=== PATIENT | male | born 1955 | race Caucasian/White ===

== ENCOUNTER → 2017-06-22 | Outpatient (CLI) | payer OTHER ==
[~2017-06-22] VITALS: Ht 172.7 cm; Wt 122.0 kg
[~2017-06-22] MED LIST: AMARYL4 MG PO; AMLODIPINE BESY10 MG PO; AMOX TR-K CLV1 EAC4 PO; BISOPROLOL-HCT1 EACH PO; HUMALOG100 UNIT/1 SUBQ; LEVEMIR FL100 UNIT/2 SUBQ; LYRICA300 MG PO; MS CONTIN 30 MG30 M1 PO; PRIMIDONE50 MG PO; SYNTHROID50 MCG PO; TRAMADOL 50 MG50 MG PO; VENTOLIN HFA 1818 GM INH
--- NOTE | ~2017-06-22 | HPC ---
[facility] [place] [address] PAIN MANAGEMENT CONSULTATION Name: LIYA PRATT LYDIA Room #: REG [place]#: [id number] Admission: 06/22/17 Attend Phys: Cynthia Gonzalez MD Discharge: Date of : 57 Report #: [id number] THIS REPORT FOR: //name// CC: BRENT Prather M.D. [facility] physician/PCP Cynthia Gonzalez DATE OF SERVICE: 06/22/2017 CHIEF COMPLAINT: "Chronic right foot pain with some crush bones in my foot." HISTORY OF PRESENT ILLNESS: The patient is a 62-year-old gentleman. 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 He states that he used to work for [employer]. A number of years ago, this company was bought out by [employer]. Since that time, he has moved to a number of different hubs. He was stationed in [place]. Noted to have some pain and discomfort in his right foot. The patient after evaluation was determined to have diabetes. He was seen by a education faculty member. He was told that he has a significant problem with his foot. He has been seen by orthopaedic physician. He has been told that he may need to have his right foot amputated. There was quite a bit of pathology in the right foot. The patient was told that he had Charcot foot with pain. He suffers from diabetes. He states that he has seen a prosthesis/orthotics person. He is having a special boot built for his foot. He continues to ambulate on the foot. He notes that the pain is quite excruciating. He has been treated with morphine 30 mg b.i.d. The patient states that that has been helpful with the foot pain. Unfortunately, his physician who supplied his medications has closed his office. He has been referred to another pain clinic for treatment. The patient has come to the pain clinic at [facility]. He worked here quite a number of years ago in the [employer]. 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 The patient states that he has never had a problem with his medications. He has never gone to multiple doctors for the medication. He did have to go to the Emergency Room because he ran out of medications. Other than that, he continues to try and get his medication from one source. He states that his blood A1c levels have been greater than 9. He does have some decreased sensation to his feet with some numbness and tingling in the toes of his right foot. He states his blood sugars have been high. They have been largely in the 300s. He has had an A1c of 12 during the hospitalization. ALLERGIES: No known drug allergies. MEDICATIONS: Albuterol sulfate 2 puffs p.r.n., Lyrica 300 mg b.i.d., insulin detemir 100 units per meal, 35 units q. 12 hours, tramadol 50 mg q. 4 hours p.r.n., Amaryl 4 mg b.i.d., bisoprolol/hydrochlorothiazide 10/6.25 daily, [address] [address] PAIN MANAGEMENT CONSULTATION Name: LIYA PRATT LYDIA Room #: REG CL Can#: [id number] Admission: 06/22/17 Attend Phys: Cynthia Gonzalez MD Discharge: Date of : 56 Report #: [id number] primidone 50 mg at bedtime, Humulin insulin 15 units subq t.i.d. with meals, amlodipine 10 mg daily, Morphine Contin 30 mg b.i.d. PAST MEDICAL HISTORY: Asthma, sleep apnea, hypertension, diabetes, Charcot's foot, osteomyelitis of right foot, and benign familial tremors. 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 He is on leave at this juncture. PAIN CLINIC ASSESSMENT: 1. History of osteoarthritis left lower extremity, left upper extremity, right lower extremity, and right upper extremity, not treated for rheumatoid arthritis. 2. Height 5 feet 8 inches, weight 269 pounds, BMI is 40. 3. Vital signs: Blood pressure 175/92, pulse 77, respiratory rate 18, room air saturation 97%. Pain intensity 1 with use of his medications. 4. Fall risk: The patient fell within the last 3 months. He states that he was walking through the house and the boot on his right foot got caught on the door seal, which caused him to fall. Otherwise, he is not having problems with ambulation. 5. Blood thinner: The patient is not on any blood thinners. 6. Hypertension: The patient is being treated for hypertension. 7. Opioid therapy greater than 6 months: The patient has been treated by his previous doctor with opioid medications. 8. Opioid risk assessment tool is low. 9. Functional assessment tool 41/70 in regards to general activity, mood, walking ability, work, relationships with others, sleep, enjoyment of life. 10. Recreational drug use, never. 11. Tobacco, never smoked cigarettes. 12. Alcohol, the patient denies use of alcohol. PHYSICAL EXAMINATION: GENERAL: The patient is a well-developed white male. Appearance, appears his stated age. Orientation: The patient is alert and oriented x 3. Affect: The patient's affect appears appropriate. HEENT: Normocephalic, atraumatic. Extraocular eye muscles intact. Appears that the patient may have some caries. Hearing within normal limits. Buccal membranes moist. NECK: Clear to auscultation without masses. LUNGS: Clear to auscultation. HEART: Regular rate, difficult to assess heart tones. MUSCULOSKELETAL: Muscle strength in the upper extremities is judged to be 5/5 with the major muscles groups. Deep tendon reflexes are trace for the biceps bilaterally and unappreciated for the triceps and brachioradialis. Muscle strength is judged to be 5/5 for cover remover strength. Left and right lateral bending [facility] [address] [place] [address] PAIN MANAGEMENT CONSULTATION Name: LIYA PRATT LYDIA [facility]: [facility] [id number] Admission: 06/22/17 Attend Phys: Cynthia Gonzalez MD Discharge: Date of : 57 Report #: [id number] of neck, left and right lateral rotation, left and right lateral extension and flexion were unremarkable. Musculoskeletal alignment appears within normal limits. The patient has an antalgic walk, walks with a limp and has a walking boot on the affected foot. Deep tendon reflexes are trace at the patella, left and right. Muscle bulk appears normal and symmetrical bilaterally. The patient has the perception of a stocking and glove presentation with decreased sensation to the level of his knee on the left and right, secondary to diabetes. Vibratory sense is absent in the aguilar bilaterally and present in his upper extremities. IMPRESSION: 1. Chronic pain in the right foot secondary to diabetic changes with Charcot foot problems, presenting with chronic pain. 2. Diabetes, poorly controlled, A1c 12, has had blood sugars in the 300 range. 3. Benign familial tremor. 4. Sleep apnea. The patient states he uses a CPAP machine. RECOMMENDATIONS: We discussed treatment options with the patient. At this juncture, he will get his information from his previous pain physician. We will evaluate it. If the patient has not had any encumbrances, we will consider providing his opioid medications. We have discussed the use of opioid medications. He is aware of the concerns regarding opioid medications in the media. He states that he takes medications only as prescribed. Pain medications enable him to be up and ambulatory. He has been given the option of surgery. At this juncture, he would like to preserve his right foot as long as possible. He has had a special boot that is being made for his foot. He hopes that in the future, the bones would mend and that he would be able to forestall amputation of his right leg. He is unable to work at this juncture secondary to his condition. He is going to try to make arrangements for his insurance possibly receiving Medicare. He will continue to monitor his blood sugars. The patient has been educated that elevated blood sugars like this are quite problematic and can worsen his right foot pathology. He will continue to take his hypertension medication. We have tested him for narcotics using the oral method. He states that he has only taken his medications and there were no other medications to be found in his system. He is going to go to the hospital and get his old records. The patient states that he is about out of medication. He was given a 1-month supply. Now, he has only a few days' worth of medication. We will write a prescription for MS Contin 30 mg 1 p.o. b.i.d., a total of 30 pills to hold him over until we get his other information. The patient states that if he does not have this medication, he will have to go to the Emergency Room. In an effort to keep him from going to the Emergency Room, we will give him the MS Contin medication. He will then sign a contract with the pain clinic indicating that he will only get his medications from [address] [address] PAIN MANAGEMENT CONSULTATION Name: LIYA PRATTN Room #: REG [facility] Milady.#: [id number] Admission: 06/22/17 Attend Phys: Cynthia Gonzalez MD Discharge: Date of : 56 Report #: [id number] We would like to thank you for letting us participate in his care. We hope he continues to improve. <ELECTRONICALLY SIGNED> By: Cynthia Gonzalez MD 07/04/17 1434 1423 0316 Cynthia Gonzalez MD /PMT
[2017-06-22 09:25] VITALS: BP 175/92
== END ==
LOC: PAIN 07:06
DX: E11.9 Type 2 diabetes mellitus without complications (principal); G25.0 Essential tremor; G47.30 Sleep apnea, unspecified; Z79.899 Other long term (current) drug therapy

== ENCOUNTER → 2017-07-04 | Outpatient (CLI) | payer OTHER ==
[~2017-07-04] VITALS: Ht 167.6 cm; Wt 122.0 kg
[~2017-07-04] MED LIST changes: +MS CONTIN15 MG PO; +MS CONTIN30 MG PO; +NEURONTIN 300300 M1 PO; +PERCOCET 10-321 EAC1 PO; +PERCOCET 10-321 EACH PO; +TOPROL XL100 MG PO
--- NOTE | ~2017-07-04 | HPC ---
[facility] [address] [address] [address] PAIN MANAGEMENT CONSULTATION Name: LIYA PRATT LYDIA Room #: REG [facility]#: [id number] Admission: 07/04/17 Attend Phys: Cynthia Gonzalez MD Discharge: Date of : 56 Report #: [id number] THIS REPORT FOR: //name// CC: Dwayne Prather [facility] physician/PCP Cynthia Gonzalez DATE OF SERVICE: 07/04/2017 FOLLOWUP COMPLAINT: Here for renewal of medication. FOLLOWUP HISTORY: The patient is a 62-year-old gentleman. 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 He does have pain involving his right foot. He has been on opioid medications. He was taking 30 mg b.i.d. At this juncture, he is taking 30 mg b.i.d. of MS Contin. He finds that this is helpful. He has significant pain and discomfort in his right foot. He is in the process of trying to get a boot to accommodate his right foot. As you recall, he suffers from diabetes and Charcot foot pain. He has been measured for a boot. He goes within the next couple of days to note the fit of the boot. He hopes the right foot improves. He has been told that he may well need to have an amputation in the future. States that on the past 2 weeks since we saw him last that his medications have been ample. He is aware that these medications will only be helpful in temporizing and making his pain tolerable. He denies any history of problems with opioid medications in the past. Denies any problems with mentation with their use. Does not have any significant problems with constipation. The patient has seen in the news that opioid medications have been associated with addiction as well as tolerance. Overall, he feels that these medications are helpful. He is interested in getting his social security benefits. He will turn 63 in the later portion of this year. Hopefully, he will be able to get not only his benefits, but medical benefits as well. ALLERGIES: No known drug allergies. MEDICATIONS: Include albuterol 2 puffs p.r.n., Lyrica 300 mg p.o. b.i.d., insulin detemir 100 units per meal, 35 units q. 12 hours, tramadol 50 mg q. 4 hours p.r.n., Amaryl 4 mg b.i.d., bisoprolol/hydrochlorothiazide 10/6.25 mg daily, primidone 50 mg at bedtime, Humulin insulin 15 mg subq t.i.d. with meals, amlodipine 10 mg daily, morphine 30 mg b.i.d. PAIN CLINIC ASSESSMENT: 1. The patient has a history of osteoarthritis involving his lower extremities. Has some left lower extremity as well as some right lower extremity problems. Has a Charcot right foot with chronic pain. 2. Height 5 feet 6 inches, weight 269 pounds, BMI [place] 43. [place] [address] PAIN MANAGEMENT CONSULTATION Name: LIYA PRATT Room #: REG [facility] [place]#: [id number] Admission: 07/04/17 Attend Phys: Cynthia Gonzalez MD Discharge: Date of : 57 Report #: [id number] 3. Vital signs: Blood pressure 151/80, pulse 74, respiratory rate 18, room air saturation 95%. 4. Pain intensity 05/02. 5. Fall. The patient has not fallen in the last 3 months, but does ambulate with use of a crutch. 6. The patient is not on a blood thinner 7. History of hypertension. The patient is being treated for hypertension. 8. Opioid therapy greater than 6 weeks. The patient has been given a contract where he will only get his opioid medication from one source. 9. Risk assessment tool, low for opioids. 10. Functional assessment tool /. 12. Recreational drug use. The patient denies use of recreational drugs. 13. Tobacco: The patient has never used tobacco. 14. Alcohol. The patient denies use of alcoholic beverages. PHYSICAL EXAMINATION: GENERAL: The patient is a well-developed white male, somewhat obese. Appears his stated age. Orientation: The patient is alert and oriented x 3. Affect: The patient's affect appears appropriate. HEENT: Normocephalic, atraumatic. Extraocular eye muscles intact. It appears that the patient has a number of caries. Hearing is within normal limits. Buccal membranes are moist. NECK: Clear to auscultation without masses. LUNGS: Clear to auscultation. HEART: Regular rate and somewhat difficult to hear the tones. MUSCULOSKELETAL: Muscles in the upper extremity judged to be 5/5 with no major muscle problems or changes in sensation. Musculoskeletal alignment appears within normal limits. The patient has an antalgic walk. He walks using a crutch Has a boot on the right affected foot. Notes that this painful when he steps on it because of "movement of the bones in the foot." He has history of stocking/glove presentation of neurological changes in the lower extremity. This is secondary to diabetes. Has absence of vibratory sense in the lower extremity. IMPRESSION: 1. Chronic pain in the right foot secondary to diabetic changes with Charcot foot problems. 2. Chronic pain in the right foot. 3. Diabetic neuropathy. Has had some poor control of his diabetes -- patient to see an strategic debriefing specialist in the near future. 4. Benign familiar tremors. 5. Sleep apnea. The patient states he continues to use a CPAP machine. RECOMMENDATIONS: We discussed treatment options with the patient. At this juncture, his information that we have received did not show any problems with [facility] [address] [place] [address] PAIN MANAGEMENT CONSULTATION Name: LIYA PRATT LYDIA Room #: REG [facility]#: [id number] Admission: 07/04/17 Attend Phys: Cynthia Gonzalez MD Discharge: Date of : 57 Report #: [id number] his opioid use in the past. We will provide him with reasonable amount of opioid medications to help him during this painful. He is scheduled to have the right orthotic/boot fitted in the next few days. He also states that he is going to follow up with his primary physician in regards to his diabetes. He is to see an strategic debriefing specialist in the future. The patient also will follow up with an orthopaedic surgeon in the future should he need to have his foot amputated. A script for his medications of 30 mg MS Contin b.i.d. have been written. He will follow up monthly in this regard. He will call us if he has any problems with his medications. We would like to thank you for letting us participate in his care. We hope he continues to improve. <ELECTRONICALLY SIGNED> By: Cynthia Gonzalez MD 07/20/17 0819 1632 0034 Cynthia Gonzalez MD /MONALISA
[2017-07-04 12:50] VITALS: BP 151/80
== END ==
LOC: PAIN 06:21
DX: G89.29 Other chronic pain (principal); M79.671 Pain in right foot; E11.40 Type 2 diabetes mellitus with diabetic neuropathy, unspecified; G47.30 Sleep apnea, unspecified; G25.0 Essential tremor

== ENCOUNTER → 2017-08-10 | Outpatient (CLI) | payer OTHER ==
[~2017-08-10] VITALS: Ht 167.6 cm; Wt 125.6 kg
[~2017-08-10] MED LIST changes: -MS CONTIN30 MG PO; -NEURONTIN 300300 M1 PO; -PERCOCET 10-321 EAC1 PO; -PERCOCET 10-321 EACH PO; -TOPROL XL100 MG PO
--- NOTE | ~2017-08-10 | HPC ---
[facility] [place] [address] PAIN MANAGEMENT CONSULTATION Name: LIYA PRATT LYDIA Room #: REG CUCO Can#: [id number] Admission: 08/10/17 Attend Phys: Cynthia Gonzalez MD Discharge: Date of : 56 Report #: [id number] THIS REPORT FOR: //name// CC: BRENT MARTIN [facility] physician/PCP Cynthia Gonzalez DATE OF SERVICE: 08/10/2017 FOLLOWUP COMPLAINT: Here for medication renewal. FOLLOWUP HISTORY: The patient is a 62-year-old gentleman. 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 He has had problems with his foot. Because of his foot, he has been unable to work. He has Charcot foot pain. He is trying to let it heal. He has got a new boot. He is trying to wear this. He has noticed some significant swelling in his foot because of the diabetes and the Charcot foot. He has returned to the pain clinic for renewal of his pain medications. He finds that the morphine medication is beneficial. It allows him to tolerate the pain and discomfort. He states that he would not be able to bear this without the use of this medication. He has taken the medication as prescribed. Denies any problems with constipation. He keeps his medications in guarded area. He would like to have his medications renewed at this juncture. ALLERGIES: No known drug allergies. MEDICATIONS: Albuterol 2 puffs p.r.n., Lyrica 300 mg p.o. b.i.d., insulin Detemir 100 units per meal 35 units subq every 12 hours, tramadol 50 mg q.4h. p.r.n., Amaryl 4 mg b.i.d., bisoprolol/hydrochlorothiazide 10/6.25 mg daily, primidone 50 mg at bedtime, Humulin insulin 16 units subq t.i.d. with meals, amlodipine 10 mg daily, morphine 30 mg b.i.d. PAIN CLINIC ASSESSMENT: 1. The patient has a history of osteoarthritis involving his lower extremities. He has some lower extremity pain as well, has a Charcot right foot with chronic pain. 2. Height 5 feet 6 inches, weight 277 pounds, BMI is 44. 3. Vital signs: Blood pressure is 179/89, pulse 73, respiratory rate 22, room saturation 98%. Pain intensity 05/02. 4. Fall risk. The patient has not fallen in the last 3 months. He does need some assistance with walking and uses a crutch. 5. Blood thinner. The patient is not on a blood thinning. 6. History of hypertension. The patient is being treated for hypertension. 7. Opioid therapy greater than 6 weeks. The patient is on opioid therapy and has signed a contract with the pain clinic. 8. Risk assessment tool, low. 9. Functional assessment tool 41/70 indicating moderate problems with [address] [address] PAIN MANAGEMENT CONSULTATION Name: LIYA PRATT Room #: REG [facility]#: [id number] Admission: 08/10/17 Attend Phys: Cynthia Gonzalez MD Discharge: Date of : 57 Report #: [id number] activities of daily living secondary to his pain. 10. Recreational drug use. Denies use of recreational drugs. 11. Tobacco never smoked cigarettes. 12. Alcohol: The patient denies use of alcoholic beverages. PHYSICAL EXAMINATION: GENERAL: The patient is a well developed white male, somewhat obese. Appears to be his stated age. He is alert and oriented x 3. Affect is appropriate. Somewhat saddened secondary to chronic pain involving his right foot. HEENT: Normocephalic, atraumatic. Extraocular eye muscles intact. Sclerae nonicteric, hearing within normal limits, numerous caries. Buccal membrane is moist. Neck: Clear to auscultation without masses. LUNGS: Clear to auscultation without rhonchi or wheezing. HEART: Regular rate, somewhat difficult to ascertain/hear heart tones. MUSCULOSKELETAL: Upper extremity is judged to be 5/5 for the major muscle groups without sensation or changes. Muscular alignment appears to be within normal limits. NEUROLOGIC: The patient walks with an antalgic gait. Has a cane, uses a boot on the affected right foot. Notes pain and discomfort secondary to movement of the bones in his foot with ambulation. Has history of stocking glove presentation on neurological change in the lower extremities secondary to diabetes. Absence of vibratory sensation in the lower extremities. IMPRESSION: 1. Chronic right foot pain secondary to diabetic changes in Charcot foot problems: 2. Chronic pain on the right foot. 3. Diabetic neuropathy, has had poor control in the past. 4. The patient to see an instrumentation tech in the future. 5. Benign familiar tremors. 6. Sleep apnea. The patient continues to use a CPAP machine. RECOMMENDATIONS: We discussed treatment options with the patient. At this point, we will continue with his opioid medications. He finds the medications are helpful. He is hoping that he will be able to avoid amputation of his right foot. He is having the right boot restructured. Hopefully, he will find that it is less painful. He will continue to monitor his blood sugars. A script for MS Contin 1 p.o. b.i.d. has been written. We would like to thank you for letting us participate in his care. We hope he continues to improve. <ELECTRONICALLY SIGNED> By: Cynthia Gonzalez MD 08/22/17 0825 1716 0440 Cynthia Gonzalez MD /nt
[2017-08-10 09:27] VITALS: BP 179/89
== END ==
LOC: PAIN 08-01 09:32
DX: G89.29 Other chronic pain (principal); M79.671 Pain in right foot; G47.30 Sleep apnea, unspecified; E11.40 Type 2 diabetes mellitus with diabetic neuropathy, unspecified

== ENCOUNTER 2017-09-27 11:09 | Inpatient (IN) | payer OTHER ==
[~2017-09-27] VITALS: Ht 172.7 cm; Wt 116.6 kg
--- NOTE | ~2017-09-27 | HC ---
[facility] [place] [address] CONSULTATION Name: LIYA PRATT LYDIA Room #: 453-P [facility] IN ..#: [id number] Admission: 09/27/17 Attend Phys: Nigel Pacheco MD Discharge: 09/29/17 Date of : 57 Report #: [id number] THIS REPORT FOR: //name// CC: FAM unknown Nigel Pacheco DATE OF SERVICE: 09/28/2017 CHIEF COMPLAINT: Charcot foot infection. HISTORY OF PRESENT ILLNESS: This is a 62-year-old male patient who has had ongoing problems with his foot over the last 7-8 months. 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 He felt that his foot has collapsed. He has had been seen by multiple physicians and feels that things are not improving despite being in a Charcot boot. He is admitted due to evidence of infection and was seen by Dr. Phani Fisher as an outpatient who recommended hospitalization. The patient denies pain associated with this. He is, however, very discouraged that things have not improved and feels that he is likely going to require an amputation. PAST MEDICAL HISTORY: Positive for diabetes mellitus with peripheral neuropathy. Likely development of Charcot deformity in the last year, he has had previous cholecystectomy, appendectomy, history of diabetes, hypertension and mild asthma. MEDICATIONS: Vancomycin, Zosyn, insulin, primidone, hydrochlorothiazide and Synthroid. ALLERGIES: None. FAMILY HISTORY: Noncontributory. SOCIAL HISTORY: Nonsmoker. Denies alcohol use. 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 REVIEW OF SYSTEMS: CONSTITUTIONAL: The patient denies fever, chills or weight loss. NEUROLOGICAL: The patient denies focal weakness, but does note neuropathic symptoms of his feet. ENT: The patient denies earache, nasal drainage or sore throat. CARDIOVASCULAR: The patient denies any chest pain, palpitations, diaphoresis. PULMONARY: The patient denies cough or shortness of breath. GASTROINTESTINAL: The patient denies nausea, vomiting, diarrhea or abdominal pain. ORTHOPEDIC: The patient notes the deformity of his right foot with drainage and ulceration. Other systems in a 14-point review of systems are negative. [address] [address] CONSULTATION Name: LIYA PRATT [facility] Room #: 453-P [facility] IN [facility].#: [id number] Admission: 09/27/17 Attend Phys: Nigel Pacheco MD Discharge: 09/29/17 Date of : 57 Report #: [id number] PHYSICAL EXAMINATION: VITAL SIGNS: At this time include pulse of 64, respiratory rate 18, blood pressure 147/77, and temperature 98.4. GENERAL: This is a chronically ill-appearing male patient who appears to be in minimal distress. HEENT: Head normocephalic. Nose and throat are clear. NECK: Supple. LUNGS: Clear. HEART: S1, S2. ABDOMEN: Soft. Bowel sounds are present. EXTREMITIES: Lower extremities demonstrate easily palpable distal pulses including dorsalis pedis and posterior tibialis bilaterally. He has obvious Charcot changes to his right foot with flattening and prominence of the arch on the plantar surface. He has a very large ulceration on the plantar surface with a mix of granulation and fibrin present. There is some serous drainage noted. NEUROLOGIC: The patient is alert and oriented and appropriate. He lacks protective sensation in the lower extremities. LABORATORY DATA: Includes sodium 131, potassium is 4.6, chloride 98, BUN 20, creatinine 1.3, glucose 251. Albumin is 3.2. White blood cell count 9.1, hemoglobin 11.8. Sed rate is pending. Arterial Dopplers demonstrate normal arterial flow in both lower extremities. X-ray evaluation of the foot demonstrates findings most suggestive of a severe neuropathic foot with fragmentation of most of the tarsal bones and disruption/dislocation at all of the TMT joints. There is fragmentation versus a fracture involving the distal calcaneus, diffuse soft tissue swelling is noted about the foot. CLINICAL IMPRESSION: 1. Nonhealing ulceration of the right foot. 2. Charcot deformity of the right foot with above-noted x-ray findings and bony destruction. 3. Diabetic foot infection. RECOMMENDATION: At this point in time, I have had a lengthy conversation with the patient. Certainly, there are a variety of options going forward. First and foremost, we need to get the infection under control. Secondly offloading will be of enormous importance if the foot is to be salvageable. If so, we would consider total contact casting as a means of reducing the pressure and improving microvascular circulation to the foot. Also, it might be worth considering a Charcot type reconstruction. I am not certain based on his bony anatomy whether this even is a viable option, but I have certainly discussed the possibility with him and perhaps he could discuss this with Orthopedics. Lastly, we discussed the possibility of below-knee amputation as a definitive procedure to allow him to be functional in the shortest time frame. At this point, he will think about and discuss these options. We will recommend a [facility] [address] [place] [address] CONSULTATION Name: BLAIR PRATTUMAIR BIRCHN Room #: 453-P DIS IN M.R.#: [id number] Admission: 09/27/17 Attend Phys: Nigel Pacheco MD Discharge: 09/29/17 Date of : 57 Report #: [id number] quarter strength Dakin's moist gauze dressing and we will recommend continued empiric antibiotic therapy, pending culture results. I appreciate having been asked to see him in consultation. <ELECTRONICALLY SIGNED> By: Tristin Bonilla MD 10/01/17 1259 [id number] 2124 Tristin Bonilla MD /nt
--- NOTE | ~2017-09-27 | HC ---
[facility] [place] [address] CONSULTATION Name: LIYA PRATT LYDIA Room #: 453-P [facility] IN M.R.#: [id number] Admission: 09/27/17 Attend Phys: Nigel Pacheco MD Discharge: 09/29/17 Date of : 57 Report #: [id number] THIS REPORT FOR: //name// CC: FAM unknown Nigel Pacheco REASON FOR CONSULTATION: I was asked to evaluate concerning right diabetic foot infection. HISTORY OF PRESENT ILLNESS: The patient was a 62-year-old with underlying diabetes, peripheral neuropathy, morbid obesity and a history of Charcot foot. He noticed a big change in his foot in January. 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 Was treated with immobilizer boot. Over the last several months, he has been followed at [facility] for orthopedic evaluation. There was some opinion that he was likely to require amputation at some point. Last week, he developed a blister over the plantar aspect of his foot. He went to the Emergency Room at [facility]. He had local debridement, given IV antibiotics and discharged on oral antibiotic therapy. No improvement in the foot and he decided to return to [facility] for further care. Denies any fever, chills or sweats. No increased pain. Blood glucose levels fasting have been in the 150-200 range. He does use insulin adjusted for his blood sugar results. He reports no specific trauma. ALLERGIES: No known allergies. MEDICATIONS: As noted on his MAR, having started on vancomycin and Zosyn from admission. Also takes insulin, primidone, bisoprolol, hydrochlorothiazide, albuterol, and Synthroid. PAST MEDICAL HISTORY: Cholecystectomy, appendectomy, left shoulder surgery, diabetes, hypertension, mild asthma. FAMILY HISTORY: Noncontributory. SOCIAL HISTORY: Nonsmoker, no significant alcohol intake. No street drugs. REVIEW OF SYSTEMS: Denies any headache, cough, sputum, nausea, vomiting, diarrhea, dysuria or frequency. PHYSICAL EXAMINATION: VITAL SIGNS: Afebrile, hemodynamically stable. He was obese, alert, cooperative, no acute distress. HEENT: Revealed poor dentition. Multiple teeth have been extracted. EYES: Unremarkable. NECK: Supple. LUNGS: Clear. [address] [address] CONSULTATION Name: LIYA PRATT LYDIA Room #: 453-P [facility] IN .R.#: [id number] Admission: 09/27/17 Attend Phys: Nigel Pacheco MD Discharge: 09/29/17 Date of : 57 Report #: [id number] HEART: Regular, without murmur. ABDOMEN: Obese. He had a ventral hernia. No hepatosplenomegaly or mass. EXTREMITIES: Pulses were palpable, 2+ edema involving the right foot and leg below the knee. He had desquamation of the skin over the plantar aspect of his mid and hindfoot. Surrounding erythema, which extended up to his lateral and medial foot. No evidence of lymphangitis up the leg. He did have some venous stasis dermatitis changes to his pretibial skin. Decreased sensation in his toes. Changes of Charcot involving the right foot with loss of arch and malpositioning of the foot. LABORATORY STUDIES: Sodium 129, potassium 4.7, creatinine 1.3. Liver function test normal. Hemoglobin 12.7, white count 12.9, platelet count 315,000. Differential unremarkable. Urinalysis unremarkable. Blood and wound cultures are pending. Venous study showed no evidence of thrombus. X-ray of the foot shows severe neuropathic foot changes with fragmentation and most of the tarsal bones and destruction, dislocation of all of the transmetatarsal joints. Fragmentation versus a fracture involving the distal calcaneus along with diffuse soft tissue swelling. Arterial ultrasound shows no significant occlusive disease. IMPRESSION AND PLAN: A 62-year-old diabetic with peripheral neuropathy and Charcot foot on the right with associated soft tissue injury with resulting large plantar foot wound. Unclear the extent of the infection into the deep tissues. He has advanced Charcot changes involving the right foot, which does not appear correctable. 1. Acute renal insufficiency. 2. Hypertension. 3. Coronary artery disease. 4. Hypothyroid. RECOMMENDATIONS: We will continue broad antibiotic coverage pending culture results. I have discussed with Orthopedic Surgery and attending. We will plan MRI scan to assess amount of soft tissue infection to see if there is any other surgical option. Likely will require amputation. We discussed this further with Orthopedic Surgery following imaging studies. No large vessel changes seen on ultrasound. Therefore, suspect small vessel diabetic damage to the right foot. We will follow CBC and renal function. Make adjustments to his antibiotics pending further study. <ELECTRONICALLY SIGNED> By: Mohinder Sy MD 10/02/17 0744 1103 1546 Mohinder Sy MD /nt
--- NOTE | ~2017-09-27 | EKG ---
[address] [place] [address] ELECTROCARDIOGRAM REPORT Name: LIYA PRATT Room #: 453-P ADM IN M.R.#: [id number] Admission: 09/27/17 Attend Phys: Nigel Pacheco MD Discharge: Date of : 57 Report #: [id number] THIS REPORT FOR: //name// [facility] Test Date: 2017-09-27 Test Time: 15:14:16 Pat Name: LIYA PRATT Department: Room: 453 P Gender: M Lvn Lpn: Jean Pierre DOSHI : 1955 Requested By: Nigel Pacheco Order Number: [id number] MD: Jorge Erickson Measurements Intervals [place] Rate: 74 P: 45 IN: 186 QRS: 38 QRSD: 94 T: 41 QT: 412 QTc: 457 Interpretive Statements Sinus rhythm Normal tracing Compared to ECG 11/21/1990 17:49:00 Sinus tachycardia no longer present Electronically Signed On 09-28-2017 9:13:11 CDT by Jorge Erickson [email or web address] <ELECTRONICALLY SIGNED> By: Jorge Erickson MD, [facility] 09/28/17 0913 1514 1514 Jorge Erickson MD, [facility] /EPI
--- NOTE | ~2017-09-27 | HC ---
[facility] [place] [address] CONSULTATION Name: LIYA PRATT LYDIA Room #: 453-P ADM IN M.R.#: [id number] Admission: 09/27/17 Attend Phys: Nigel Pacheco MD Discharge: Date of : 57 Report #: [id number] THIS REPORT FOR: //name// CC: FAM unknown Nigel Pacheco DATE OF SERVICE: 09/28/2017 REASON FOR CONSULTATION: Right Charcot foot. HISTORY OF PRESENT ILLNESS: The patient is a 62-year-old male with diabetes and diabetic neuropathy, who reported initially noting pain and swelling in the right foot in January of last year. He was then seen by a physician in [place], who recommended a boot. The swelling has not significantly improved and he has had multiple other evaluations; most notably was an evaluation at [place], where he reports an orthopedic surgeon recommended an amputation. He reports a wound for about 2-3 weeks, without any new specific injury. He denies fevers or chills and he has been treated by pain management, by Dr. Gonzalez, here at [facility]. He is frustrated with his foot and would like a resolution as quickly as possible, even if that means an amputation. REVIEW OF SYSTEMS: MUSCULOSKELETAL: See HPI. No other wounds. ENDOCRINOLOGY: Reports diabetes mellitus. He reports his last hemoglobin A1c was 9 and has had no significant elevation in his blood sugars recently. NEUROLOGIC: Reports history of diabetic neuropathy with decreased sensation to both of his feet. PAST MEDICAL HISTORY: Significant for hypertension, insulin-dependent diabetes and hypothyroidism. MEDICATIONS: Include insulin, primidone, bisoprolol, hydrochlorothiazide, albuterol and levothyroxine. PAST SURGICAL HISTORY: Left shoulder surgery, cholecystectomy and appendectomy. SOCIAL HISTORY: Prior to development of his Charcot foot, he did not use any assistive devices; however, now uses a boot and a crutch to ambulate. He denies smoking or drinking alcohol. He lives alone. ALLERGIES: No known drug allergies. LABORATORY DATA: Laboratory studies done on 09/27/2017 show a white blood cell count of 12.9, hemoglobin 12.7, hematocrit 37.5 and platelet count 315,000. Blood glucose 247. [address] [address] CONSULTATION Name: LIYA PRATT LYDIA Room #: 453-P [facility] IN [facility].#: [id number] Admission: 09/27/17 Attend Phys: Nigel Pacheco MD Discharge: Date of : 57 Report #: [id number] PHYSICAL EXAMINATION: GENERAL: The patient is alert and oriented. He interacts appropriately. He is a well-developed, well-nourished male, who converses well. VITAL SIGNS: Temperature is 36.8, heart rate 62, respiratory rate 19, blood pressure 136/65 and pulse oximetry is 95% on room air. EXTREMITIES: Examination of his right lower extremity, he has brisk capillary refill. Sensation is decreased throughout the entire right lower extremity. He has an obvious Charcot foot deformity with a 10 cm x 8 cm plantar wound with fibrinous tissue. There is some mild erythema surrounding this. He wiggles his toes. He has decreased motion at the ankle. No other tenderness throughout the lower extremity, except for at the foot. Left lower extremity, sensation is decreased subjectively. He has brisk capillary refill. He wiggles his toes. The skin is clean, dry and intact. He has no tenderness to palpation through the entire left lower extremity. RADIOGRAPHIC DATA: AP, lateral and oblique of the right foot shows a severe Charcot foot deformity, without definite osteomyelitis. IMPRESSION AND PLAN: Right Charcot foot deformity with a wound. I discussed with the patient that I would like the wound care team to evaluate him further as he does not grossly have osteomyelitis; however, he may require an amputation. One of my [facility] partners will follow him on the weekend and most likely will continue his care. Questions were encouraged and answered to the best of my ability. By: [id number] [id number] Richa Fulton MD /maurice
[2017-09-27 11:18] VITALS: BP 139/87
[2017-09-27 12:17] LABS: ABSOLUTE NEUTROPHILS 9.9 thou/uL (1.4-8.2); BASOPHILS 0.6 % (0.0-2.0); HEMATOCRIT 37.5 % (42.0-52.0); HEMOGLOBIN 12.7 gm/dL (14.0-18.0); LYMPHOCYTES 9.8 % (24.0-44.0); MCH 27.4 pg (26.0-34.0); MCV 80.7 fL (80.0-100.0); MONOCYTES 11.6 % (1.0-8.0); PLATELET COUNT 315 thou/uL (150-400); RBC 4.65 mil/uL (4.50-6.00); RDW 13.5 % (10.5-14.5); WBC 12.9 thou/uL (4.0-11.0)
[2017-09-27 12:25] LABS: CALCIUM 9.5 mg/dL (8.5-10.1); CREATININE 1.3 mg/dL (0.7-1.3); POTASSIUM 4.7 mmol/L (3.5-5.1)
[2017-09-27 12:31] LABS: ALBUMIN 3.2 g/dL (3.4-5.0); TOTAL PROTEIN 7.9 g/dL (6.4-8.2)
[2017-09-27 14:21] LABS: URINE BILIRUBIN NEGATIVE (Negative); URINE BLOOD NEGATIVE (Negative); URINE CLARITY CLEAR; URINE COLOR YELLOW; URINE GLUCOSE-RANDOM* TRACE (Negative); URINE KETONES NEGATIVE (Negative); URINE LEUKOCYTES NEGATIVE (Negative); URINE NITRITE NEGATIVE (Negative); URINE PROTEIN (DIPSTICK) 1+ (Negative); URINE SPECIFIC GRAVITY 1.025 (1.005-1.035); URINE UROBILINOGEN 0.2 E.U./dl (0.2-1.0)
[2017-09-27 14:27] LABS: BACTERIA None Seen /HPF (None Seen); CRYSTALS None Seen /LPF (None Seen); HYALINE CASTS 0-3 Few /LPF (None Seen); SQUAMOUS 0-3 Few /LPF (0-3); URINE RBC None Seen /HPF (0-2); URINE WBC 0-5 Rare /HPF (0-5)
[2017-09-27 14:56] VITALS: BP 118/88
[2017-09-27 15:07] VITALS: BP 136/62
[2017-09-27 19:24] VITALS: BP 132/63
[2017-09-28 00:12] VITALS: BP 124/71
[2017-09-28 03:56] VITALS: BP 136/65
[2017-09-28 07:49] VITALS: BP 147/77
[2017-09-28 10:49] LABS: HEMATOCRIT 35.2 % (42.0-52.0); HEMOGLOBIN 11.8 gm/dL (14.0-18.0); MCH 27.2 pg (26.0-34.0); MCHC 33.7 g/dL (28.0-37.0); MCV 80.7 fL (80.0-100.0); RBC 4.36 mil/uL (4.50-6.00); RDW 13.7 % (10.5-14.5); WBC 9.1 thou/uL (4.0-11.0)
[2017-09-28 11:01] LABS: CALCIUM 8.9 mg/dL (8.5-10.1); CREATININE 1.3 mg/dL (0.7-1.3); POTASSIUM 4.6 mmol/L (3.5-5.1)
[2017-09-28 16:39] VITALS: BP 110/53
[2017-09-28 19:13] VITALS: BP 114/71
[2017-09-29 03:01] VITALS: BP 107/69
[2017-09-29 09:05] VITALS: BP 149/75
== END 2017-09-29 09:06 | disposition left against medical advice (07) | DRG 871 ==
LOC: ER 11:09 → EROBS 13:48 → 4W 13:48
PROVIDERS: Emergency Medicine; Hospitalist
DX: A41.9 Sepsis, unspecified organism (principal); E43 Unspecified severe protein-calorie malnutrition; L03.115 Cellulitis of right lower limb; E87.1 Hypo-osmolality and hyponatremia; M14.671 Charcot's joint, right ankle and foot; S80.929A Unspecified superficial injury of unspecified lower leg, initial encounter; E11.65 Type 2 diabetes mellitus with hyperglycemia; E03.9 Hypothyroidism, unspecified; I10 Essential (primary) hypertension; J45.909 Unspecified asthma, uncomplicated; I25.10 Atherosclerotic heart disease of native coronary artery without angina pectoris; E11.42 Type 2 diabetes mellitus with diabetic polyneuropathy; L97.519 Non-pressure chronic ulcer of other part of right foot with unspecified severity; N28.9 Disorder of kidney and ureter, unspecified; F41.9 Anxiety disorder, unspecified; E66.01 Morbid (severe) obesity due to excess calories; Z68.39 Body mass index [BMI] 39.0-39.9, adult; Z90.49 Acquired absence of other specified parts of digestive tract; Z79.4 Long term (current) use of insulin; X58.XXXA Exposure to other specified factors, initial encounter; Y93.89 Activity, other specified; Y92.89 Other specified places as the place of occurrence of the external cause; Y99.8 Other external cause status; Z53.21 Procedure and treatment not carried out due to patient leaving prior to being seen by health care provider
CPT/HCPCS: 10040

== ENCOUNTER → 2017-10-10 | Outpatient (CLI) | payer OTHER ==
[~2017-10-10] VITALS: Ht 167.6 cm; Wt 119.8 kg
--- NOTE | ~2017-10-10 | HPC ---
[facility] [place] [address] PAIN MANAGEMENT CONSULTATION Name: LIYA PRATT LYDIA Room #: [facility] [id number] Admission: 10/10/17 Attend Phys: Cynthia Gonzalez MD Discharge: Date of : 57 Report #: [id number] THIS REPORT FOR: //name// CC: Dwayne Prather M.D. [facility] physician/PCP Cynthia Gonzalez DATE OF SERVICE: 10/10/2017 FOLLOWUP COMPLAINT: "I went to the Emergency Room. My foot is really messed up." FOLLOWUP HISTORY: The patient is a 62-year-old gentleman, who has been seen in the pain clinic because of chronic pain involving his right foot. The patient has a Charcot right foot with pain. 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 Last year, he noted worsening of pain and discomfort. It was diagnosed that he has significant problems with his right foot. He has been unable to continue to work because of this pain. He has been seen by a number of physicians. They have informed him that the most likely result will be amputation. The patient has some difficulty with that decision. He has been to the Emergency Room total of 4 times since April of this year. His latest admission has convinced him that most likely he will need to have his leg amputated. He has gone to see a surgeon. The surgeon is at [facility]. States that he will see the surgeon again in October. He has an opening under the bottom of his foot. He feels that the likelihood of being able to salvage his leg has diminished significantly. Continues to monitor his blood sugars. He would like to continue with his medications. He feels that the use of MS Contin 45 mg b.i.d. has been a good level to help control this pain. Without that he was suffering significant pain. ALLERGIES: No known drug allergies. CURRENT MEDICATIONS: Albuterol 2 puffs p.r.n., Lyrica 300 mg b.i.d., insulin 35 units subcutaneously every 12 hours, tramadol 50 mg every 4-6 hours, Amaryl 4 mg b.i.d., bisoprolol/hydrochlorothiazide daily, primidone 50 mg at bedtime, insulin 16 units subcutaneously t.i.d. with meals, amlodipine 10 mg daily, morphine 15 mg b.i.d./30 mg MS Contin b.i.d. for a total of 45 mg daily. PAIN CLINIC ASSESSMENT: 1. The patient has arthritic changes involving his lower extremity with Charcot right foot changes with chronic pain. 2. Height 5 feet 6 inches, weight 264 pounds, BMI is 42.6. 3. Vital Signs: Blood pressure 152/81. Pulse 75, respiratory rate 22, saturation 96%. 4. Pain intensity 1/10 with use of his medications. 5. Fall risk. The patient has not fallen, but is somewhat unstable walking [address] [address] PAIN MANAGEMENT CONSULTATION Name: LIYA PRATT Room #: [facility] [place]#: [id number] Admission: 10/10/17 Attend Phys: Cynthia Gonzalez MD Discharge: Date of : 57 Report #: [id number] with his crutch. 6. Blood thinner. The patient is not on a blood thinning medication. 7. Hypertension. The patient is being treated for hypertension. 8. Opioid therapy greater than 6 weeks. The patient is receiving opioid therapy from the pain clinic and feels that it is adequate at this juncture. 9. Risk assessment tool, low for opioid use. 10. Functional assessment tool 41/70 indicating significant problems with activities of daily living secondary to his pain. 11. Recreational drug use. The patient denies use of recreational drugs. 12. Tobacco: The patient has never smoked. 13. Alcohol frequency. The patient denies use of alcoholic beverages. PHYSICAL EXAMINATION: GENERAL: The patient is a well-developed, well-nourished white male. He appears his stated age. He is somewhat obese. He is alert and oriented x 3. Affect is appropriate. He is saddened secondary to the continued demise of his right foot. HEENT: Normocephalic, atraumatic. Extraocular eye muscles intact. Sclerae nonicteric. Hearing is within normal limits. The patient has numerous caries. Buccal membranes moist. NECK: Clear without bruits. LUNGS: Clear to auscultation without rhonchi or wheezing. HEART: Regular rate. MUSCULOSKELETAL: Upper extremities 5/5 with symmetry without neurological changes. The patient without significant scoliosis, kyphosis or lordosis. The patient walks with a crutch. Has a swollen right foot. Swollen up into the area of his calf as compared to the left side. Has a brace on his right foot. IMPRESSION: 1. Chronic right foot pain secondary to diabetes with Charcot foot changes. 2. Chronic pain involving the right foot. 3. Diabetic neuropathy - patient with poor control in the past. 4. The patient is scheduled to see an window caser in the future. 5. Benign familial tremors. 6. Sleep apnea. The patient uses a CPAP machine. RECOMMENDATIONS: We discussed treatment options with the patient. He states that he is going to see his surgeon at [facility]. He is coming to the realization that his foot most likely will need to be amputated. He feels that his medications are helpful at this juncture. He is taking them as prescribed. He is not having any complications. He is clear in his sensorium with their use. Rates his pain as a 1/10 at this juncture. He will be given a script for his medications. He will follow up with his surgeon. Hopefully, his situation will be rectified in the future. We explained to him that given that he has an ulceration in the bottom of his foot. Should he note worsening of symptoms, which would indicate the possibility of sepsis, he should immediately [address] [address] PAIN MANAGEMENT CONSULTATION Name: LIYA PRATT LYDIA [facility] [id number] Admission: 10/10/17 Attend Phys: Cynthia Gonzalez MD Discharge: Date of : 57 Report #: [id number] go to the Emergency Room and seek assistance. We would like to thank you for letting us participate in his care. We hope he continues to improve. <ELECTRONICALLY SIGNED> By: Cynthia Gonzalez MD 10/12/17 0754 1451 2036 Cynthia Gonzalez MD /nt
[2017-10-10 11:03] VITALS: BP 152/81
== END ==
LOC: PAIN 06:44
DX: M19.071 Primary osteoarthritis, right ankle and foot (principal); G89.29 Other chronic pain

== ENCOUNTER → 2017-11-16 | Outpatient (CLI) | payer OTHER ==
[~2017-11-16] MED LIST changes: +PERCOCET 10-321 EACH PO
--- NOTE | ~2017-11-16 | HPC ---
[facility] [address] [address] PAIN MANAGEMENT CONSULTATION Name: LIYA PRATT LYDIA Room #: REG CUCO [facility]#: [id number] Admission: 11/16/17 Attend Phys: Cynthia Gonzalez MD Discharge: Date of : 57 Report #: [id number] THIS REPORT FOR: //name// CC: Dwayne Prather MD [facility] physician/PCP Cynthia Gonzalez DATE OF SERVICE: 11/16/2017 FOLLOWUP COMPLAINT: "I went to the Emergency Room because I was really sick and they told me that I had an infection in my foot. It returned into gangrene. I needed to have surgery immediately". FOLLOWUP HISTORY: The patient is a 62-year-old gentleman who has been followed in the pain clinic because of chronic pain involving his right foot. He has a Charcot right foot. This has been quite painful. He has been treated with opioid medications. He has been trying to let it heal. He has noted a worsening of his pain and discomfort. Because the pain became significantly more problematic, he went to the Emergency Room at [facility]. They told him his prognosis was bad that needed to have his foot amputated before he developed an infection, which spread into his bloodstream. He underwent an emergent amputation of the right leg. The patient states that he did receive ketamine as a part of his anesthetic. This caused some hallucinations. He desires never had that medication again. Postoperatively, the patient was having a significant amount of pain. He was finally placed on a Percocet regimen of q.4h., Percocet to help control the pain. He was also experiencing pain and spasms. At this juncture, pain has improved somewhat. Still has pain, which limits his activities of daily living. He feels at this juncture because of the problem he is having that he will officially retire. He would like to continue with pain medications through the course of his recovery. He is having some phantom limb pain, but overall rates his pain as about one at this juncture with his current medical regimen. ALLERGIES: No known drug allergies. MEDICATIONS: Albuterol 2 puffs p.r.n., Lyrica 300 mg b.i.d., insulin 35 mg subcutaneous q.12h., tramadol 10 mg every 4-6 hours, Amaryl 4 mg b.i.d., Bisoprolol/hydrochlorothiazide daily, Primidone 50 mg at bedtime, insulin 16 units subq t.i.d. with meals, amlodipine 10 mg, morphine 15 mg 1 p.o. b.i.d. was using MS Contin 30 mg at bedtime for a total dose of 45 mg daily. PAIN CLINIC ASSESSMENT: 1. The patient has had some Arthritic changes involving his lower extremity with Charcot right foot changes with chronic pain and infection. 2. Left lower extremity pain, left upper extremity pain, right lower, right upper extremity pain with osteoarthritis. [address] [address] PAIN MANAGEMENT CONSULTATION Name: LIYA PRATT Room #: REG CUCO [place]#: [id number] Admission: 11/16/17 Attend Phys: Cynthia Gonzalez MD Discharge: Date of : 57 Report #: [id number] 3. Height 5 feet 6 inches. The patient's weight was not taken today secondary to inability to stand because of the amputated foot. 4. Vital Signs: Blood pressure 184/99, pulse 70, respiratory rate 18, room air saturation 100%. 5. Pain intensity 1.5 with use of his medications. 6. Fall risk. The patient has difficulty standing secondary to amputation of his right foot. 7. Blood thinner. The patient is not on a blood thinning medication. 8. Hypertension. The patient is being treated for hypertension. 9. Opioid therapy greater than 6 weeks. The patient has received medications from the pain clinic as a result of chronic pain. 10. Risk assessment tool, low for use of opioids. 11. Functional assessment tool 41/70. 12. Recreational drug use. The patient denies use of recreational drugs. 13. Tobacco: The patient has never smoked. 14. Alcohol: The patient denies use of alcoholic beverages. PHYSICAL EXAMINATION: GENERAL: The patient is a well-developed, well-nourished white male, appears his stated age. He is somewhat obese. He is alert and oriented x 3. His affect is appropriate. He is somewhat sad secondary to having had amputation of his right foot. HEENT: Normocephalic, atraumatic. Extraocular eye muscles intact. Sclerae nonicteric. Hearing is within normal limits. The patient has numerous carries. Mucous membranes are moist. NECK: Without bruits or JVD. LUNGS: Clear to auscultation without rhonchi or wheezing. HEART: Regular rate. ABDOMEN: Protuberant. MUSCULOSKELETAL: Upper extremity strength is judged to be 5/5 for the major muscle groups without sensory changes. The patient has no significant scoliosis, kyphosis or lordosis. The patient is in a wheelchair with his right leg elevated. He has a [id number]-uct-cbiw amputation. No evidence of drainage from his wrap. IMPRESSION: 1. Chronic right foot pain secondary to diabetes and Charcot foot, status post wxltx-ekw-pwuz amputation secondary to gangrene. 2. Chronic pain involving the right foot, decreased since amputation of the right foot. 3. Diabetic neuropathy -- patient with poor control in the past. 4. The patient is scheduled to see an candy cutter machine in the future. 5. Benign familiar tremors helps with the medications. 6. Sleep apnea. The patient continues to use his CPAP machine. [facility] [address] [place] [address] PAIN MANAGEMENT CONSULTATION Name: LIYA PRATT Room #: REG CUCO [place]#: [id number] Admission: 11/16/17 Attend Phys: Cynthia Gonzalez MD Discharge: Date of : 56 Report #: [id number] RECOMMENDATIONS: We discussed treatment options with the patient. At this juncture, we will continue with opioid treatment. We will continue to wean the patient. He was on a total of 45 mg of morphine b.i.d. At this juncture, we will decrease his dose to 15 mg morphine every day as well as have a backup of Percocet 2 tablets of 5 mg 1 p.o. b.i.d. as needed for pain control. He will call us if he has any problems with his medications. He will monitor his blood sugars. He will call his doctors if he notes any worsening or changes in his physical condition. We would like to thank you for letting us participate in his care. We hope he continues to improve. By: [id number] Cynthia Gonzalez MD /nt
[2017-11-16 13:00] VITALS: BP 184/99
== END ==
LOC: PAIN 06:33
DX: E11.40 Type 2 diabetes mellitus with diabetic neuropathy, unspecified (principal); M79.671 Pain in right foot; G89.29 Other chronic pain; G47.33 Obstructive sleep apnea (adult) (pediatric); Z79.899 Other long term (current) drug therapy

== ENCOUNTER → 2017-12-14 | Outpatient (CLI) | payer OTHER ==
[~2017-12-14] MED LIST changes: +MS CONTIN30 MG PO
--- NOTE | ~2017-12-14 | HPC ---
[facility] [address] [address] [place] [address] PAIN MANAGEMENT CONSULTATION Name: LIYA PRATT LYDIA Room #: REG CUCO [facility]#: [id number] Admission: 12/14/17 Attend Phys: Cynthia Gonzalez MD Discharge: Date of : 57 Report #: [id number] THIS REPORT FOR: //name// CC: Dr. Dwayne Gonzalez DATE OF SERVICE: 12/14/2017 PRIMARY CARE PHYSICIAN: Dr. Dwayne Prather. The patient does not have a family physician. FOLLOWUP COMPLAINT: The pain really got bad. I ran out of some of my medications. FOLLOWUP HISTORY: The patient is a 62-year-old gentleman who has been seen in the pain clinic because of chronic pain associated with Charcot right foot. As you recall, he has had an amputation of the right foot, [id number]. Overall, things are going reasonably well. He is healing up reasonably nice. He has fallen up with his surgeon. He is having pain, which he rates as a 10/10 at this point. He is having pain in his hands bilaterally. Pain down in his left foot. He does have diabetes. He denies any new trauma. States that he has had some worsening of this pain over the last few weeks. He did run low on some of his medications. He feels that, that might be the reason that his pain has become so intense. At this juncture, he has returned to the pain clinic with the hopes of renewing his medication. He states that he has tried gabapentin. Feels that the medication was of no significant benefit. He did use Lyrica. It was felt that there was a bit of improvement with use of this medication, but that the zhou was somewhat prohibitive and he could not afford it. He desires moving ahead. States that he would like to continue to decrease his opioid medications as he is able to tolerate it, but at this point, the pain is just so intense that he is suffering. He would like to have his medications renewed. He does note that the right foot has some sensations of phantom limb pain as well as feels that it is beginning to tell us scope up into his foot with less discomfort over time. He has had no fever, chills or noted any signs, which would make him think that his right leg was infected. States that overall things are going reasonably well and is healing very nicely. ALLERGIES: No known drug allergies. CURRENT MEDICATIONS: Albuterol 2 puffs, Lyrica 300 mg b.i.d., insulin 35 units subQ q.12 hours, tramadol 10 mg q.4-6 hours, Amaryl 4 mg b.i.d., bisoprolol/hydrochlorothiazide, primidone 50 mg at bedtime, insulin subcutaneous 16 mg t.i.d. with meals, amlodipine 10 mg, morphine 15 mg b.i.d., MS Contin 30 mg at bedtime with 15 mg was used for a total of 45 mg. He was on total of [address] [address] PAIN MANAGEMENT CONSULTATION Name: LIYA PRATT Room #: REG CUCO [place]#: [id number] Admission: 12/14/17 Attend Phys: Cynthia Gonzalez MD Discharge: Date of : 57 Report #: [id number] mg daily plus Percocet tablets. PAIN CLINIC ASSESSMENT: 1. History of osteoarthritis, upper left extremity, left lower extremity, right lower extremity, right upper extremity, history of rheumatoid arthritis. The patient is not being treated for rheumatoid arthritis. 2. Height 5 feet 6 inches. The patient is not able to take his weight secondary to being in a wheelchair. 3. Vital signs: Blood pressure 190/110, pulse 80, respiratory rate 20, room air saturation 98%. Pain intensity 10/10. 4. Fall risk. The patient has not fallen in the last 3 months. 5. Blood thinner. The patient is not on a blood thinning medication. 6. Hypertension. The patient is being treated for hypertension. 7. Opioid therapy greater than 6 weeks. The patient receives this medication from one source, the pain clinic. 8. Risk assessment tool, low risk for opioid use. 9. Functional assessment tool, 41/70. 10. Recreational drug use. The patient denies use of recreational drugs. 11. Tobacco: The patient has never smoked tobacco. 12. Alcohol: The patient denies use of alcoholic beverages. PHYSICAL EXAMINATION: GENERAL: The patient is a well-developed, slightly obese, white male, appears his stated age. He is alert and oriented x 3. He is somewhat excited today. He states that he has run out of his pain medications and his pain has caused his blood pressure to increase. HEENT: Normocephalic, atraumatic. Extraocular eye muscles intact. Sclerae nonicteric. Hearing is within normal limits. Mucous membranes are moist. NECK: Without bruits or JVD. LUNGS: Clear to auscultation without rhonchi or rales. HEART: Regular rate. S1, S2. ABDOMEN: Protuberant. MUSCULOSKELETAL: The patient complains of some pain in his hands bilaterally. It is down in the area of the joints of his hands. Complains of pain and discomfort radiating down into his left foot with numbness and tingling. Has a well-healing stump/BKA, which is pink. The patient denies any problems with infection or worsening of pain. Feels that this pain overall is beginning to continue to improve, status post surgery. IMPRESSION: 1. Right Charcot foot, status post [id number]-[id number]-[id number] amputation secondary to gangrene. 2. Chronic pain involving the right foot, decreasing with the amputation of the right foot, but the patient has increased pain in his right hand and left leg as well as the foot. 3. History of diabetic neuropathy. The patient has had poor control of his [facility] [address] [place] [address] PAIN MANAGEMENT CONSULTATION Name: LIYA PRATT LYDIA [facility]: [facility] [id number] Admission: 12/14/17 Attend Phys: Cynthia Gonzalez MD Discharge: Date of : 57 Report #: [id number] sugars in the past. 4. The patient will follow up with the tire recapping machine operator in the future. 5. Benign familial tremors. 6. Sleep apnea. The patient will continue with his CPAP machine. He is having difficulty sleeping secondary to the pain. RECOMMENDATIONS: We discussed treatment options with the patient. The patient was on 15 mg of morphine. We will increase his morphine to 30 mg daily. He will take 30 mg a.m., 30 mg p.m. and Percocet 5 mg b.i.d. to help with the pain. The patient will consider use of another anticonvulsants, possibly using Elavil to help with his neuropathic pain and improve his sleep. A script for his medications has been provided. The patient will call us if he has any concerns. We would like to thank you for letting us participate in his care. We hope he continues to improve. By: [id number] Cynthia Gonzalez MD /PMT
[2017-12-14 10:36] VITALS: BP 190/110
== END ==
LOC: PAIN 06:59
DX: M79.671 Pain in right foot (principal); G89.29 Other chronic pain; E11.40 Type 2 diabetes mellitus with diabetic neuropathy, unspecified; G47.30 Sleep apnea, unspecified; A52.16 Charcot's arthropathy (tabetic); G25.0 Essential tremor

== ENCOUNTER → 2018-01-11 | Outpatient (CLI) | payer OTHER ==
[~2018-01-11] MED LIST changes: +NEURONTIN 300300 M1 PO; +PERCOCET 10-321 EAC1 PO; +TOPROL XL100 MG PO
[2018-01-11 10:51] VITALS: BP 178/89
== END ==
LOC: PAIN 07:05
DX: M19.072 Primary osteoarthritis, left ankle and foot (principal); M19.071 Primary osteoarthritis, right ankle and foot; M19.042 Primary osteoarthritis, left hand; M19.041 Primary osteoarthritis, right hand; G89.29 Other chronic pain; Z79.899 Other long term (current) drug therapy

== ENCOUNTER → 2018-02-08 | Outpatient (CLI) | payer OTHER ==
[2018-02-08 11:02] VITALS: BP 159/84
== END ==
LOC: PAIN 06:50
DX: M79.641 Pain in right hand (principal); M79.671 Pain in right foot; G89.29 Other chronic pain; I10 Essential (primary) hypertension; M19.90 Unspecified osteoarthritis, unspecified site; Z79.891 Long term (current) use of opiate analgesic; Z79.899 Other long term (current) drug therapy

== ENCOUNTER → 2018-03-08 | Outpatient (CLI) | payer OTHER ==
[~2018-03-08] VITALS: Ht 170.2 cm; Wt 109.8 kg
[2018-03-08 10:29] VITALS: BP 166/94
== END ==
LOC: PAIN 07:23
DX: M79.671 Pain in right foot (principal); M79.641 Pain in right hand; M79.642 Pain in left hand; G89.29 Other chronic pain; Z79.899 Other long term (current) drug therapy; Z79.891 Long term (current) use of opiate analgesic

== ENCOUNTER → 2018-04-12 | Outpatient (CLI) | payer OTHER ==
[~2018-04-12] VITALS: Ht 172.7 cm; Wt 113.4 kg
--- NOTE | ~2018-04-12 | HPC ---
[facility] [place] [address] [address] PAIN MANAGEMENT CONSULTATION Name: LIYA PRATT LYDIA Room #: REG CUCO [facility]#: [id number] Admission: 04/12/18 Attend Phys: Cynthia Gonzalez MD Discharge: Date of : 57 Report #: [id number] THIS REPORT FOR: //name// CC: Dwayne Whiting DATE OF SERVICE: 04/12/2018 CHIEF COMPLAINT: Here for medication renewal and I got sick and was in the hospital again. HISTORY OF PRESENT ILLNESS: The patient is a 63-year-old gentleman who has been followed in the Pain Clinic because of chronic pain. As you recall, he suffers from diabetes. He had Charcot involvement of his right foot. As a result, he developed an infection. After the infection worsened, he developed gangrene and an amputation was required. The patient is still recovering from the amputation. He feels that his right stump is healing well. He did have some problems recently and then he developed shaking chills, sweating, and was readmitted to the hospital. He was found to be septic. He was put on an antibiotic protocol and he is doing better at this juncture. He has returned today for renewal of his medications. He has pain in his right foot. He has some discomfort in his hands. He is experiencing some spasms and aching as well. He rates his pain as a 1-2. He does have some phantom pain involving the lower extremity. ALLERGIES: No known drug allergies. MEDICATIONS: Albuterol 2 puffs, Lyrica 300 mg b.i.d., insulin 35 units subcutaneous q. 12 hours, tramadol 10 mg q. 4 hours, Amaryl 4 mg b.i.d., bisoprolol/hydrochlorothiazide, primidone 50 mg at bedtime, insulin subcutaneous 16 units t.i.d. with meals, amlodipine 10 mg, morphine/MS Contin 30 mg b.i.d., and Percocet p.r.n. PAIN CLINIC ASSESSMENT AND PQRS: 1. History of osteoarthritis: The patient has some arthritic changes in his left lower extremity as well as some right lower extremity and right upper extremity problems. The patient is not being treated for rheumatoid arthritis. 2. Height 5 feet 8 inches, weight 250 pounds, BMI is 38. 3. Vital signs: Blood pressure 151/87, pulse 67, respiratory rate 16, room air saturation 96%. 4. Pain intensity: 05/02. 5. Fall risk: The patient has not fallen in the last 3 months. 6. Blood thinner: The patient is not on a blood thinning medication. 7. Hypertension: The patient is being [place] [address] PAIN MANAGEMENT CONSULTATION Name: LIYA PRATT [facility] #: [facility] [id number] Admission: 04/12/18 Attend Phys: Cynthia Gonzalez MD Discharge: Date of : 57 Report #: [id number] 8. Opioids greater than 6 weeks: The patient is receiving opioid medications through the Pain Clinic. 9. Risk assessment tool: Low for opioid use. 10. Functional assessment tool: 41/70. 11. Recreational drug use: The patient denies use of recreational drugs. 12. Tobacco: The patient has never smoked. 13. Alcohol: The patient denies frequent use of alcoholic beverages. PHYSICAL EXAMINATION: GENERAL: The patient is a well-developed, well-nourished, white male. He appears his stated age. He is alert and oriented x 3. Affect is appropriate. Speech is fluent. HEENT: Normocephalic, atraumatic. Extraocular eye muscles intact. Sclerae nonicteric. Mucous membranes are moist. NECK: Without adenopathy or JVD. HEART: Regular rate. S1 and S2. LUNGS: Clear to auscultation without rhonchi or rales. ABDOMEN: Nontender, protuberant. Bowel sounds present. MUSCULOSKELETAL: Without significant scoliosis, kyphosis or lordosis. The patient has a well-healing left stump. He is in a wheelchair. He states that he is improving and he is having fewer/resolution of the sweating and sick feeling that he had experienced when he had blood infections in the past. He is somewhat concerned that he has had a second episode of this. ASSESSMENT: 1. History of Charcot foot, status post dutfr-bgc-avjo amputation, history of gangrene. 2. Chronic pain involving the right foot. 3. History of diabetic neuropathy. 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 4. Benign familial tremor. 5. Sleep apnea. The patient continues to use a CPAP machine. RECOMMENDATIONS: We will renew his medications. A script for his medications has been rewritten. Possible complications of opioid, which could include dependence as well as less effectiveness secondary to tolerance were discussed. The patient elects to proceed with renewal of his medications. A script for gabapentin 300 mg 1 p.o. t.i.d., MS Contin 30 mg q. 12 hours, and Percocet 10/325 has been distributed. We would like to thank you for letting us participate in his care. We hope he continues to improve. By: [id number] MD fly Moise
[2018-04-12 14:37] VITALS: BP 151/87
== END ==
LOC: PAIN 04-05 13:55
DX: E11.40 Type 2 diabetes mellitus with diabetic neuropathy, unspecified (principal); G89.29 Other chronic pain; G25.0 Essential tremor; G47.33 Obstructive sleep apnea (adult) (pediatric); Z86.31 Personal history of diabetic foot ulcer; Z79.899 Other long term (current) drug therapy

== ENCOUNTER → 2018-05-24 | Outpatient (CLI) | payer OTHER ==
[~2018-05-24] VITALS: Ht 172.7 cm; Wt 108.9 kg
[~2018-05-24] MED LIST changes: +XANAX1 MG PO
[2018-05-24 13:06] VITALS: BP 162/84
--- NOTE | 2018-05-24 13:21 | NUR ---
Pain Clinic Assessment: 1. History of Osteoarthritis: Left Lower Extremity Left Upper Extremity Right Lower Extremity Right Upper Extremity B/L, KNEES NECK SPINE ANKLES HANDS FEET ELBOWS PT STATES ITS EVERYWHERE History of Rheumatoid Arthritis: Not Applicable 2. Height: 5 ft. 8 in. 172.7 cm. Weight: 240.0 lb. oz. 108.864 kg. Patient's BMI: 36.5 3. Vital Signs: BP: 162/84 Pulse: 86 Resp: 18 Temp: 02 Sat: 98 ECG Mon: 4. Pain Intensity: 1-2 5. Fall Risk: Dizziness: Y Needs help standing or walking: Y Fallen in the last 3 months: N Fall risk comments: PT HAS DIZZINESS WHEN UP USING PROSTETIC LEG, PT IN W/C AMPUTATION AT KNEE 6. Patient on Blood Thinner: None 7. History of Hypertension: Y 8. Opioid Therapy greater than 6 weeks: Y Opiate Contract Signed: 07/04/17 9. Risk Assessment Tool Provided: LOW 10. Functional Assessment Tool: 41/70 11. Recreational Drug Use: Never Drug Type: Tobacco Use: Never Smoker Tobacco Type: Amount or Packs/day: How Many Years: Alcohol Use: No Frequency: Quant:
--- NOTE | 2018-05-31 16:49 | HPC ---
[facility] [address] [place] [address] PAIN MANAGEMENT CONSULTATION Name: LIYA PRATT LYDIA Room #: REG [place]#: [id number] Admission: 05/24/18 Attend Phys: Cynthia Gonzalez MD Discharge: Date of : 57 Report #: [id number] THIS REPORT FOR: //name// CC: Daquan Gonzalez DATE OF SERVICE: 05/24/2018 FOLLOWUP: My stump is healing pretty well. I am here for renewal of the medications. HISTORY: The patient is a 63-year-old gentleman who has been followed in the pain clinic because of chronic pain. As you recall, he developed Charcot foot on the right. As a result of this problem, the patient developed an infection. This progressed to gangrene. He then had to have amputation of his left leg below the knee. He is still recovering from this. Notes that the stump is healing. States that it is healing somewhat slow, but is making advances. Has been working on wearing his prosthesis. He continues to use it. He is cognizant of the need to wear it properly. States that if it is not on properly developed irritation of his stump. We have had some cold weather. It is noted he did go outside in his wheelchair. States that he slid down the driveway. He was unable to get back up into his home. He did have his cell phone and called for the foramen. They then returned him to his home. Overall, things are going reasonably well. He notes that his pain somewhat waxes and wanes. Note some swelling, which is present in the stump. He is using a walker while he learns to use his prosthesis. He has noticed some changes in his metabolism. States that he is sometimes hot, sometimes cold. Because of this, he has been directed to follow up with an coding analyst in the near future. ALLERGIES: No known drug allergies. CURRENT MEDICATIONS: Albuterol 2 puffs Lyrica, 300 mg b.i.d., insulin 35 units subcu 12 hours, tramadol 40 mg every 4 hours, Amaryl 4 mg b.i.d., bisoprolol/hydrochlorothiazide, primidone 50 mg at bedtime, insulin subcutaneous 16 units t.i.d. with meals, amlodipine 10 mg, morphine 30 mg b.i.d., Percocet. PAIN CLINIC ASSESSMENT/PQRS: 1. History of osteoarthritis. The patient has some arthritic changes in his lower extremity on the left. He is not being treated for rheumatoid arthritis. 2. Height 5 feet 8 inches, weight 250 pounds, BMI is 38. 3. Vital signs: Blood pressure 162/84, pulse 86, respiratory rate 18, room air saturation 98%. 4. Pain intensity 1-2/10. 5. Fall risk. The patient has not fallen in the last 3 months. 6. The patient has had some dizziness when he is using his prosthetic leg. When he is in a wheelchair. [facility] [address] [place] [address] PAIN MANAGEMENT CONSULTATION Name: LIYA PRATT Room #: REG CLMignon [place]#: [id number] Admission: 05/24/18 Attend Phys: Cynthia Gonzalez MD Discharge: Date of : 57 Report #: [id number] 7. Blood thinner. The patient is not on a blood thinning medication. 8. Hypertension. The patient is being treated for hypertension. 9. Opioid greater than 6 weeks. The [facility]. 10. Risk assessment tool, low. 11. Functional assessment tool 41/70. 12. Recreational drug use. The patient denies use of recreational drugs. 13. Tobacco: The patient denies use of tobacco. 14. Alcohol: The patient denies use of alcoholic beverages. PHYSICAL EXAMINATION: GENERAL: The patient is a well-developed, well-nourished slightly obese white male, appears his stated age. He is alert and oriented x 3. His affect is appropriate. Speech is fluent. HEAD, EYES, EARS, NOSE, AND THROAT: Normocephalic, atraumatic. Extraocular eye muscles intact. Sclerae nonicteric. Mucous membranes are moist. NECK: Without adenopathy or JVD. HEART: Regular rate. S1, S2. LUNGS: Clear to auscultation without rhonchi or rales. ABDOMEN: Nontender blood bowel sounds present. MUSCULOSKELETAL: Without significant scoliosis, kyphosis or lordosis. The patient some upper extremity muscle strength is judged to be 5/5 for the major muscle groups. The patient has a resolving improving right stump. He does not have his prosthetic in place. States that he sometimes notes some waxing and waning of stump. It swells and sometimes becomes more difficult to wear his prosthesis. ASSESSMENT: 1. History of Charcot foot, status post [id number] amputation after development of gangrene. 2. History of pain in the right foot. 3. History of diabetic neuropathy. 4. The patient continues to follow up with his intercurrent not with his coding analyst. 5. Benign familial tremor. 6. Sleep apnea. The patient continues to use a CPAP machine. RECOMMENDATIONS: We discussed treatment options with the patient. At this juncture, we will continue with his medications. He does feel that he is having any problems with them. He is able to sleep reasonably well. He does not feel overly sedated with use of his medications. Finds these medications are helpful. He is able to be more productive. Able to engage in more activities with use of these medications. He is aware that opioid medications can be addictive. He is aware that these medications may become less effective over time secondary to development of tolerance. He has elected today to have his medications again renewed. A script for MS Contin 30 mg 1 p.o. b.i.d., [address] [address] PAIN MANAGEMENT CONSULTATION Name: LIYA PRATT LYDIA Room #: REG [facility].#: [id number] Admission: 05/24/18 Attend Phys: Cynthia Gonzalez MD Discharge: Date of : 57 Report #: [id number] one p.o. t.i.d. and gabapentin are renewed. The patient will continue to work to increase his level of activity. He will follow up with his coding analyst. Feels that he may be having some problems with his thyroid. <ELECTRONICALLY SIGNED> By: Cynthia Gonzalez MD 05/31/18 [id number] Cynthia Gonzalez MD /MONALISA
== END ==
LOC: PAIN 05-22 07:01
DX: M14.671 Charcot's joint, right ankle and foot (principal); E11.40 Type 2 diabetes mellitus with diabetic neuropathy, unspecified; G25.0 Essential tremor; G47.30 Sleep apnea, unspecified; Z79.899 Other long term (current) drug therapy

== ENCOUNTER 2018-06-28 14:36 | Emergency (ER) | payer OTHER ==
[~2018-06-28] VITALS: Ht 172.7 cm; Wt 109.8 kg
[2018-06-28 15:26] VITALS: BP 181/93
== END 2018-06-28 17:19 | disposition left against medical advice (07) ==
LOC: ER 14:36
DX: Z53.21 Procedure and treatment not carried out due to patient leaving prior to being seen by health care provider (principal)

== ENCOUNTER → 2018-06-28 | Outpatient (CLI) | payer OTHER ==
--- NOTE | ~2018-06-28 | HPC ---
[facility] [address] [address] PAIN MANAGEMENT CONSULTATION Name: LIYA PRATT LYDIA Room #: REG [facility] [place]#: [id number] Admission: 06/28/18 ������������������ Attend Phys: Cynthia Gonzalez MD Discharge: ������������������ Date of : 57 Report #: [id number] THIS REPORT FOR: //name// CC: Daquan Gonzalez DATE OF SERVICE: 06/28/2018 FOLLOWUP COMPLAINT: "The hot light fell on my right leg and burned it. HISTORY OF PRESENT ILLNESS: The patient is a 63-year-old gentleman who has been followed in the Pain Clinic because of chronic pain. As you may recall, he suffered from diabetes. He developed Charcot right foot. As a result, it became infected. Because of gangrene, he underwent surgery with amputation. He continues to recover from this. He has continued to wear prosthesis. He feels that his medications, at this juncture, continue to enable him to be active. The patient states that he was working with a hot item, I think it was a light. States that the outer area of the light was really hot. It fell and hit his left foot. It significantly burned his left aguilar area. He states that he will visit his orthopedic doctor/wound clinic. He will have them evaluate this. He denies any new feelings of infection. He did have a period where he was septic. He does not feel that way at this juncture. He continues to ambulate with his wheelchair. He has returned today and would like to have his medications renewed. He rates his pain as a 2/10. He has noted some improvement in the phantom pain. ALLERGIES: No known drug allergies. CURRENT MEDICATIONS: Albuterol 2 puffs, Lyrica 300 mg b.i.d., insulin 35 units subcutaneous q. 12 hours, tramadol 40 mg q. 4 hours, Amaryl 4 mg b.i.d., bisoprolol/hydrochlorothiazide, primidone 50 mg at bedtime, insulin subcutaneous 16 units t.i.d. with meals, amlodipine 10 mg, morphine 30 mg b.i.d., Percocet. PAIN CLINIC ASSESSMENT AND PQRS: 1. History of osteoarthritis: The patient has some arthritic changes in his lower extremity on the left. The patient is not being treated for rheumatoid arthritis. 2. Height 5 feet 8 inches, weight 250 pounds, BMI is 38. 3. Vital signs: Blood pressure is 175/99, pulse 80, respiratory rate 20, room air saturation is 100%. 4. Pain intensity: 2/10 5. Fall risk: The patient has not fallen in the last 3 months. The patient has noted that sometimes when he gets up, he feels somewhat dizzy. 6. Blood thinner: The patient is not on a blood thinning medication. 7. Hypertension: The patient [place] [address] PAIN MANAGEMENT CONSULTATION Name: LIYA PRATT LYDIA Room #: REG [facility] [place]#: [id number] Admission: 06/28/18 ������������������ Attend Phys: Cynthia Gonzalez MD Discharge: ������������������ Date of : 57 Report #: [id number] 8. Opioids greater than 6 weeks: The [facility]. 9. Risk assessment tool: Low for opioid use. 10. Functional assessment tool: 41/70. 11. Recreational drug use: The patient denies use of recreational drugs. 12. Tobacco: The patient has never smoked. 13. Alcohol: The patient denies use of alcoholic beverages. PHYSICAL EXAMINATION: GENERAL: The patient is a well-developed, well-nourished, white male. He appears his stated age. He is slightly obese. Affect is appropriate. Speech is fluent. HEENT: Normocephalic, atraumatic. Extraocular eye muscles intact. Sclerae nonicteric. Mucous membranes are moist. The patient has glasses on. NECK: Without adenopathy or JVD. HEART: Regular rate, S1 and S2. LUNGS: Clear to auscultation without rhonchi or rales. ABDOMEN: Nontender. Bowel sounds present. MUSCULOSKELETAL: Without significant scoliosis, kyphosis or lordosis. The patient has some pain and discomfort in the right lower extremity, status post right foot amputation secondary to Charcot foot. Recent burn to the left lower extremity, which is about approximately 3 inches x 4 inches on the left lower extremity on the anterior portion of his calf. ASSESSMENT: 1. History of Charcot foot, status post poipl-spv-[id number] amputation after development of gangrene. 2. Recent burn to the right lower extremity, which appears to be quite significant. The patient will follow up with his primary physician and with his wound clinic. He will go to the hospital if he notes any symptoms of fevers, worsening of pain or discharge from the right lower extremity. 3. History of diabetes -- neuropathy. 4. Benign familial tremor. 5. Sleep apnea. The patient uses CPAP machine. RECOMMENDATIONS: We discussed treatment options with the patient. We explained to him the urgency of having his left lower extremity evaluated. There is possibility of losing that extremity as well. The patient states he will follow up with his physician. We explained to him that if he notes any concerns, he should go immediately to the Emergency Room to be evaluated. A script for his medications of MS Contin 30 mg 1 p.o. b.i.d. and Percocet 02/14 one p.o. t.i.d. as well as gabapentin have been renewed. The patient will call us if he has any concerns. The patient will continue to follow up with an insecticide supervisor in regards to his thyroid condition. [address] [address] PAIN MANAGEMENT CONSULTATION Name: LIYA PRATT [facility] [id number] Admission: 06/28/18 ������������������ Attend Phys: Cynthia Gonzalez MD Discharge: ������������������ Date of : 57 Report #: [id number] We would like to thank you for letting us participate in his care. We hope he continues to improve. ��������������������������������������������� ���������������������������������������� By: ��������������������������������������������� [id number] Cynthia Gonzalez MD /maurice
[2018-06-28 13:56] VITALS: BP 175/99
--- NOTE | 2018-06-28 14:23 | NUR ---
Pain Clinic Assessment: 1. History of Osteoarthritis: Left Lower Extremity Left Upper Extremity Right Lower Extremity Right Upper Extremity B/L, KNEES NECK SPINE ANKLES HANDS FEET ELBOWS PT STATES ITS EVERYWHERE History of Rheumatoid Arthritis: Not Applicable 2. Height: ft. in. cm. Weight: lb. oz. kg. Patient's BMI: 3. Vital Signs: BP: 175/99 Pulse: 80 Resp: 20 Temp: 02 Sat: 100 ECG Mon: 4. Pain Intensity: 2 5. Fall Risk: Dizziness: N Needs help standing or walking: Y Fallen in the last 3 months: N Fall risk comments: PT HAS DIZZINESS WHEN UP USING PROSTETIC LEG, PT IN W/C AMPUTATION AT KNEE 6. Patient on Blood Thinner: None 7. History of Hypertension: Y 8. Opioid Therapy greater than 6 weeks: Y Opiate Contract Signed: 07/04/17 9. Risk Assessment Tool Provided: LOW 10. Functional Assessment Tool: 11. Recreational Drug Use: Never Drug Type: Tobacco Use: Never Smoker Tobacco Type: Amount or Packs/day: How Many Years: Alcohol Use: No Frequency: Quant:
== END ==
LOC: PAIN 06:46
DX: E11.40 Type 2 diabetes mellitus with diabetic neuropathy, unspecified (principal); G47.30 Sleep apnea, unspecified; Z79.4 Long term (current) use of insulin; Z89.611 Acquired absence of right leg above knee; Z79.899 Other long term (current) drug therapy; Z79.891 Long term (current) use of opiate analgesic

== ENCOUNTER → 2018-08-02 | Outpatient (CLI) | payer OTHER ==
[~2018-08-02] VITALS: Ht 172.7 cm; Wt 109.8 kg
--- NOTE | ~2018-08-02 | HPC ---
[facility] [address] [place] [address] PAIN MANAGEMENT CONSULTATION Name: LIYA PRATT LYDIA Room #: REG CUCO [place]#: [id number] Admission: 08/02/18 ������������������ Attend Phys: Cynthia Gonzalez MD Discharge: ������������������ Date of : 57 Report #: [id number] THIS REPORT FOR: //name// CC: GEO physician/PCP Cynthia Gonzalez DATE OF SERVICE: 08/02/2018 CHIEF COMPLAINT: Here for medication renewal. FOLLOWUP HISTORY: The patient is a 63-year-old gentleman. 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 He developed Charcot problems in his right foot. As a result, gangrene was noted. He then was required to undergo an amputation of his foot. Continues to convalesce from that surgery. He feels that his medications continue to be helpful. He is trying to get used to his prosthesis. Rates his pain as 1 at this point. He does have some phantom pain. He feels that his medications are helpful and would like to continue with them at this juncture. States that his right leg is improving. As you may recall, he dropped a hot item on that and burn it pretty severely. He is going to the wound clinic. They have given him ointments as well as instructions on how to care for the wound. He feels that things are improving reasonably well. Still is only able to ambulate in the wheelchair. ALLERGIES: No known drug allergies. CURRENT MEDICATIONS: Albuterol 2 puffs, Lyrica 300 mg b.i.d., insulin 35 units subcutaneous q. 12 hours, tramadol 40 mg q. 4 hours, Amaryl 4 mg b.i.d., bisoprolol/hydrochlorothiazide, primidone 50 mg at bedtime, insulin subcutaneous 16 units t.i.d. with meals, amlodipine 10 mg, morphine 30 mg b.i.d., Percocet. PAIN CLINIC ASSESSMENT/PQRS: 1. History of osteoarthritis. The patient has some arthritic changes in his lower extremity on the left. The patient is not being treated for rheumatoid arthritis. 2. Height 5 feet 8 inches, weight is 242 pounds, BMI is 36.8. 3. Vital signs: Blood pressure 174/92, pulse 78, respiratory rate 16, room air saturation 98%. 4. Pain intensity, 05/02. 5. Fall risk. The patient does need assistance with standing. He does have the amputated leg. He is trying to use his prosthesis. Does note some dizziness sometimes when he is getting up using the prosthetic leg. It is a big ldesy-fue-sypz amputation. 6. Blood thinner. The patient is not on a blood thinning medication. 7. Hypertension. The patient has been treated for hypertension. His blood pressure is a bit elevated today. 8. Opioids greater than 6 weeks. The [place] [address] PAIN MANAGEMENT CONSULTATION Name: LIYA PRATT LYDIA Room #: REG [facility] [place]#: [id number] Admission: 08/02/18 ������������������ Attend Phys: Cynthia Gonzalez MD Discharge: ������������������ Date of : 57 Report #: [id number] [facility]. 8. Risk assessment tool, low for opioids. 9. Functional assessment tool, 35/70. 10. Recreational drug use. The patient denies use of recreational drugs. 11. Tobacco: The patient has never smoked. 12. Alcohol: The patient denies use of alcoholic beverages. PHYSICAL EXAMINATION: GENERAL: The patient is a well-developed, well-nourished white male. He is slightly obese. Affect is appropriate. Speech is fluent. He has a significant amount of food still left in his marte, which has been there for some time. States that he could not see it. After we brought it to his attention, he is unable to get his face close enough to the mirror at home to see the food gets stuck in his mustache and ____. HEENT: Normocephalic, atraumatic. Extraocular eye muscles intact. The patient is wearing his glasses. Mucous membranes are moist. NECK: Without adenopathy or JVD. HEART: Regular rate. S1, S2. LUNGS: Clear to auscultation without rhonchi or rales. ABDOMEN: Nontender. Bowel sounds present. MUSCULOSKELETAL: Without significant scoliosis, kyphosis or lordosis. The patient is in a wheelchair. Has a covering over his left lower extremity. Has some tape, which looks like blue duct tape over the burn area, which has been followed by the Wound Clinic. There are no red streaks going up or down the leg. The patient has not noticed any constitutional problems, which might indicate an infection. ASSESSMENT: 1. History of Charcot foot with yesgp-fop-zgfp amputation after development of gangrene. 2. Recent burn on his right foot, which is being followed by the Wound Care Clinic. 3. History of diabetes/peripheral neuropathy. 4. Benign familial tremor. 5. Sleep apnea. The patient uses CPAP machine. RECOMMENDATIONS: We discussed treatment option with the patient. We will continue with his current medications. We continue to impress upon him the need to closely monitor his right leg. Should he get some infection that could be causing severe enough problem that he could possibly lose his right leg. He states that he would continue to watch it. We gave the patient some white tape to tape his gauze and the dressing to the wound. He should not use the blue duct tape. [facility] [address] [place] [address] PAIN MANAGEMENT CONSULTATION Name: LIYA PRATT [facility] [id number] Admission: 08/02/18 ������������������ Attend Phys: Cynthia Gonzalez MD Discharge: ������������������ Date of : 57 Report #: [id number] We would like to thank you for letting us participate in his care. We hope he continues to improve. ��������������������������������������������� ���������������������������������������� By: ��������������������������������������������� [id number] Cynthia Gonzalez MD /nt
[2018-08-02 13:30] VITALS: BP 174/92
--- NOTE | 2018-08-02 13:39 | NUR ---
Pain Clinic Assessment: 1. History of Osteoarthritis: Left Lower Extremity Left Upper Extremity Right Lower Extremity Right Upper Extremity B/L, KNEES NECK SPINE ANKLES HANDS FEET ELBOWS PT STATES ITS EVERYWHERE History of Rheumatoid Arthritis: Not Applicable 2. Height: 5 ft. 8 in. 172.7 cm. Weight: 242.0 lb. oz. 109.771 kg. Patient's BMI: 36.8 3. Vital Signs: BP: 174/92 Pulse: 78 Resp: 16 Temp: 02 Sat: 98 ECG Mon: 4. Pain Intensity: 1 5. Fall Risk: Dizziness: N Needs help standing or walking: N Fallen in the last 3 months: N Fall risk comments: PT HAS DIZZINESS WHEN UP USING PROSTETIC LEG, PT IN W/C AMPUTATION AT KNEE 6. Patient on Blood Thinner: None 7. History of Hypertension: Y 8. Opioid Therapy greater than 6 weeks: Y Opiate Contract Signed: 07/04/17 9. Risk Assessment Tool Provided: LOW-3 10. Functional Assessment Tool: 35/70 11. Recreational Drug Use: Never Drug Type: Tobacco Use: Never Smoker Tobacco Type: Amount or Packs/day: How Many Years: Alcohol Use: No Frequency: Quant:
--- NOTE | 2018-08-02 13:39 | NUR ---
Answering YES to this query will charge for the Pneumococcal Vaccine. Please answer YES ONLY if administering vaccine at this time.
== END ==
LOC: PAIN 06:55
DX: T24.001D Burn of unspecified degree of unspecified site of right lower limb, except ankle and foot, subsequent encounter (principal); E11.610 Type 2 diabetes mellitus with diabetic neuropathic arthropathy; E11.52 Type 2 diabetes mellitus with diabetic peripheral angiopathy with gangrene; I96 Gangrene, not elsewhere classified; Z79.891 Long term (current) use of opiate analgesic; Z79.899 Other long term (current) drug therapy; Z79.84 Long term (current) use of oral hypoglycemic drugs; X08.8XXD Exposure to other specified smoke, fire and flames, subsequent encounter

== ENCOUNTER → 2018-09-04 | Outpatient (CLI) | payer OTHER ==
[~2018-09-04] VITALS: Ht 172.7 cm; Wt 109.8 kg
[2018-09-04 12:46] VITALS: BP 175/93
--- NOTE | 2018-09-04 12:54 | NUR ---
Pain Clinic Assessment: 1. History of Osteoarthritis: Left Lower Extremity Left Upper Extremity Right Lower Extremity Right Upper Extremity B/L, KNEES NECK SPINE ANKLES HANDS FEET ELBOWS PT STATES ITS EVERYWHERE History of Rheumatoid Arthritis: Not Applicable 2. Height: 5 ft. 8 in. 172.7 cm. Weight: 242.0 lb. oz. 109.771 kg. Patient's BMI: 36.8 3. Vital Signs: BP: 175/93 Pulse: 80 Resp: 20 Temp: 02 Sat: 95 ECG Mon: 4. Pain Intensity: 1 5. Fall Risk: Dizziness: N Needs help standing or walking: N Fallen in the last 3 months: N Fall risk comments: PT HAS DIZZINESS WHEN UP USING PROSTETIC LEG, PT IN W/C AMPUTATION AT KNEE 6. Patient on Blood Thinner: None 7. History of Hypertension: Y 8. Opioid Therapy greater than 6 weeks: Y Opiate Contract Signed: 07/04/17 9. Risk Assessment Tool Provided: LOW-3 10. Functional Assessment Tool: 35/70 11. Recreational Drug Use: Never Drug Type: Tobacco Use: Never Smoker Tobacco Type: Amount or Packs/day: How Many Years: Alcohol Use: No Frequency: Quant:
--- NOTE | 2018-09-05 08:09 | HPC ---
[facility] [place] [address] PAIN MANAGEMENT CONSULTATION Name: LIYA PRATT LYDIA Room #: REG [facility]#: [id number] Admission: 09/04/18 ������������������ Attend Phys: Lisa Ryan Discharge: ������������������ Date of : 57 Report #: [id number] THIS REPORT FOR: //name// CC: Lisa Dooley DATE OF SERVICE: 09/04/2018 CHIEF COMPLAINT: Chronic right foot pain, post-amputation phantom limb pain. HISTORY OF PRESENT ILLNESS: This is a 63-year-old gentleman who returns to the pain clinic today for refill of his medications. He developed a Charcot problem in his right foot that resulted in gangrene and then had undergone amputation below his knee. He has been having phantom pain ever since. He also recently had developed a significant lesion on his left lower leg from a burn. He has been seen in the burn unit for that, it has been healing slowly. He tells me his pain is quite well today. Overall, it is a 1/10, mostly of a spasm, achy tingly feeling in his right stump and hands. He said using his prosthetic makes his pain worse and he is not using that today. He is in a wheelchair. His medications are very helpful. He tells me he does have some problems with constipation. Does not like to take ldwh-tpo-tjfnvuh medications. He uses Fleet Enema about every 3 days if he has not had a bowel movement. The patient tells me he continues to go to the burn unit. He does have dressings that he gets changed on his right lower leg for his cellulitis and recent burn. He tells me he has not gone there this week. ALLERGIES: BACTRIM AND FENTANYL. CURRENT LIST OF MEDICATIONS: Oxycodone 10/325 t.i.d., MS Contin 30 mg b.i.d., gabapentin 300 mg t.i.d., amlodipine 10 mg daily, Xanax 1 mg b.i.d., metoprolol 100 mg daily, Synthroid 50 mcg daily, albuterol inhaler as needed, Levemir insulin 35 units every 12 hours, bisoprolol and hydrochlorothiazide daily, primidone daily and lispro subcutaneous insulin daily. PQRS: 1. He has a history of osteoarthritis in his upper and lower extremities, his neck, ankle, spine, feet, generalized all over. He denies any rheumatoid arthritis. 2. Height is 5 feet 8 inches, weight is 242, BMI is 36. Vital signs, blood pressure 175/93, pulse is 80, respirations 20, oxygen sat is 95%. 3. Pain score is 1/10. 4. Dizziness, denies. He does need help with walking. He is in a wheelchair today, not using his prosthetic leg, though he does have one at home. He has not fallen in the last 3 months. 5. The patient is not on any blood thinners. He does take medication for [address] [address] PAIN MANAGEMENT CONSULTATION Name: LIYA PRATT LYDIA Room #: REG [facility]#: [id number] Admission: 09/04/18 ������������������ Attend Phys: Lisa Ryan Discharge: ������������������ Date of : 56 Report #: [id number] hypertension. 6. Opioid therapy is greater than 6 weeks; therefore, an opioid signed contract is on the chart. His risk assessment tool is low. His functional assessment is 35/70. 7. Recreational drug use, he denies. He is not a smoker. He does not drink alcohol. We did check the prescription monitoring system. The patient is filling appropriately. He is due for his medications today. There is a drug screen on the chart within the past year. PHYSICAL EXAMINATION: GENERAL: This is a well-developed, well-nourished white gentleman. He is slightly obese. His affect is appropriate. Speech is fluent. He is unkempt today and has slight smell about him. HEENT: Normocephalic, atraumatic. Extraocular eye muscles are intact. The patient is wearing glasses. Mucous membranes are moist. MUSCULOSKELETAL: Without significant scoliosis, kyphosis or lordosis. He is in a wheelchair today. He has dry scaly skin on his left lower extremity and slight redness as the appearance of cellulitis. He does have a healing wound from a recent burn on his lower left extremity that he is seen in the burn unit for on his left leg that is slowly healing. There is pink skin noted around this quarter-sized area on his left lower leg. ASSESSMENT: 1. History of Charcot foot with jmajw-yjl-uixy amputation on his right. 2. Recent burn on his left foot, followed by burn clinic. This may be a repeat, but a recent burn on his left lower extremity. He is following the burn unit. 3. History of diabetes with peripheral neuropathy. 4. Benign familial tremor. We reviewed the fact that opiate medications are being used to provide analgesia adequate to support activities of daily living, not attempting to achieve a specific pain score on the 0-10 Visual Analog Scale. The current opiate medications are providing sufficient analgesia to allow the patient to participate in activities of daily living. The patient is not exhibiting any aberrant behavior suggestive of drug diversion. The patient is not having any adverse reactions to medications. The patient is not suffering from daytime somnolence or mental acuity changes. The patient is managing opiate-induced constipation with appropriate hjnj-tuu-yfljlus agents and dietary considerations. The patient was counseled on concern for caution with operating a motor vehicle while using opiate medications. A physical exam was performed and the patient's functional status was evaluated. All patients with back pain were advised against the bed rest greater than 4 [facility] [address] [place] [address] PAIN MANAGEMENT CONSULTATION Name: LIYA PRATT LYDIA [facility] [id number] Admission: 09/04/18 ������������������ Attend Phys: Lisa Ryan Discharge: ������������������ Date of : 56 Report #: [id number] days and were advised to return to normal activities. Pain score assessment was noted and the treatment plan was reviewed with the patient. All current medications, both prescribed and OTC were reviewed and reconciled on the electronic medical record. Tobacco screening was accomplished and smoking cessation was advised when indicated. BMI was noted and diet/exercise modification was recommended for all patients following outside normal parameters. I reviewed with the patient today their responsibilities to safeguard prescription medications, reviewed their responsibility to utilize medications only as prescribed by the physician. They are to seek and receive pain medications only from 1 physician group ([facility]). They are to use 1 pharmacy and keep the clinic informed if they change pharmacies. Their responsibilities include making followup visits in a timely fashion and to avoid abrupt discontinuation of medication usage. Their responsibilities further include bringing their medications (bottles from the pharmacy with residual pills) to the visit for possible confirmation of pill counts and the patient understands it is their responsibility to submit to random drug screens to ensure both that the medications prescribed are present, and that no other controlled substances are present. All prescriptions provided today were generated electronically. PLAN: 1. We discussed treatment options with the patient today. The patient feels like his current regimen is helping him quite well. His recent pain score is quite low at 1. He would like to continue on this current regimen. Prescriptions given today for MS Contin 30 mg b.i.d., #60, Percocet 10/325 t.i.d., #90 and gabapentin 300 mg t.i.d., #90. 2. The patient is seen by Dr. Jese Gonzalez who did see the patient and collaborated care today. 3. The patient made an appointment in 1-month time period to follow up with us. He is encouraged to continue to see the burn unit for his ongoing healing of his left lower extremity. ��������������������������������������������� <ELECTRONICALLY SIGNED> ���������������������������������������� By: Lisa Ryan ��������������������������������������������� 09/05/18 0809 [id number] Lisa Ryan /maurice
== END ==
LOC: PAIN 07:02
DX: E11.610 Type 2 diabetes mellitus with diabetic neuropathic arthropathy (principal); E11.42 Type 2 diabetes mellitus with diabetic polyneuropathy; G25.0 Essential tremor; Z79.899 Other long term (current) drug therapy

== ENCOUNTER → 2018-10-04 | Outpatient (CLI) | payer OTHER ==
[~2018-10-04] MED LIST changes: +NEURONTIN 300M300 M2 PO
[2018-10-04 10:04] VITALS: BP 148/90
--- NOTE | 2018-10-04 10:33 | NUR ---
Pain Clinic Assessment: 1. History of Osteoarthritis: Left Lower Extremity Left Upper Extremity Right Lower Extremity Right Upper Extremity B/L, KNEES NECK SPINE ANKLES HANDS FEET ELBOWS History of Rheumatoid Arthritis: Not Applicable 2. Height: 5 ft. 7 in. 170.2 cm. Weight: lb. oz. kg. Patient's BMI: 3. Vital Signs: BP: 148/90 Pulse: 76 Resp: 20 Temp: 02 Sat: 97 ECG Mon: 4. Pain Intensity: 1 1/2 5. Fall Risk: Dizziness: N Needs help standing or walking: Y Fallen in the last 3 months: N Fall risk comments: PT HAS DIZZINESS WHEN UP USING PROSTETIC LEG, PT IN W/C AMPUTATION AT KNEE 6. Patient on Blood Thinner: None 7. History of Hypertension: Y 8. Opioid Therapy greater than 6 weeks: Y Opiate Contract Signed: 07/04/17 9. Risk Assessment Tool Provided: LOW-3 10. Functional Assessment Tool: 35/ 11. Recreational Drug Use: Never Drug Type: Tobacco Use: Never Smoker Tobacco Type: Amount or Packs/day: How Many Years: Alcohol Use: No Frequency: Quant:
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
== END ==
LOC: PAIN 06:49
DX: S81.802D Unspecified open wound, left lower leg, subsequent encounter (principal); E11.42 Type 2 diabetes mellitus with diabetic polyneuropathy; G25.0 Essential tremor; Z79.891 Long term (current) use of opiate analgesic; Z87.39 Personal history of other diseases of the musculoskeletal system and connective tissue; X08.8XXD Exposure to other specified smoke, fire and flames, subsequent encounter

== ENCOUNTER → 2018-11-06 | Outpatient (CLI) | payer OTHER ==
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
[2018-11-06 11:27] VITALS: BP 123/76
--- NOTE | 2018-11-06 11:51 | NUR ---
Pain Clinic Assessment: 1. History of Osteoarthritis: Left Lower Extremity Left Upper Extremity Right Lower Extremity Right Upper Extremity B/L, KNEES NECK SPINE ANKLES HANDS FEET ELBOWS History of Rheumatoid Arthritis: Not Applicable 2. Height: 5 ft. 6 in. 167.6 cm. Weight: lb. oz. kg. Patient's BMI: 3. Vital Signs: BP: 123/76 Pulse: 63 Resp: 20 Temp: 02 Sat: 97 ECG Mon: 4. Pain Intensity: 1 5. Fall Risk: Dizziness: N Needs help standing or walking: Y Fallen in the last 3 months: N Fall risk comments: PT HAS DIZZINESS WHEN UP USING PROSTETIC LEG, PT IN W/C AMPUTATION AT KNEE 6. Patient on Blood Thinner: None 7. History of Hypertension: Y 8. Opioid Therapy greater than 6 weeks: Y Opiate Contract Signed: 07/04/17 9. Risk Assessment Tool Provided: LOW-3 10. Functional Assessment Tool: 35/70 11. Recreational Drug Use: Never Drug Type: Tobacco Use: Never Smoker Tobacco Type: Amount or Packs/day: How Many Years: Alcohol Use: No Frequency: Quant:
== END ==
LOC: PAIN 10:59
DX: T24.002D Burn of unspecified degree of unspecified site of left lower limb, except ankle and foot, subsequent encounter (principal); G25.0 Essential tremor; E11.21 Type 2 diabetes mellitus with diabetic nephropathy; A52.16 Charcot's arthropathy (tabetic); Y92.89 Other specified places as the place of occurrence of the external cause

== ENCOUNTER → 2018-12-13 | Outpatient (CLI) | payer OTHER ==
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
[2018-12-13 09:54] VITALS: BP 167/98
--- NOTE | 2018-12-13 10:09 | NUR ---
Pain Clinic Assessment: 1. History of Osteoarthritis: Left Lower Extremity Left Upper Extremity Right Lower Extremity Right Upper Extremity B/L, KNEES NECK SPINE ANKLES HANDS FEET ELBOWS History of Rheumatoid Arthritis: Not Applicable 2. Height: ft. in. cm. Weight: lb. oz. kg. Patient's BMI: 3. Vital Signs: BP: 167/98 Pulse: 84 Resp: 20 Temp: 02 Sat: 96 ECG Mon: 4. Pain Intensity: 5 5. Fall Risk: Dizziness: N Needs help standing or walking: Y Fallen in the last 3 months: N Fall risk comments: PT HAS DIZZINESS WHEN UP USING PROSTETIC LEG, PT IN W/C AMPUTATION AT KNEE 6. Patient on Blood Thinner: None 7. History of Hypertension: Y 8. Opioid Therapy greater than 6 weeks: Y Opiate Contract Signed: 07/04/17 9. Risk Assessment Tool Provided: LOW-3 10. Functional Assessment Tool: 11. Recreational Drug Use: Never Drug Type: Tobacco Use: Never Smoker Tobacco Type: Amount or Packs/day: How Many Years: Alcohol Use: No Frequency: Quant:
== END ==
LOC: PAIN 06:48
DX: E11.42 Type 2 diabetes mellitus with diabetic polyneuropathy (principal); E11.610 Type 2 diabetes mellitus with diabetic neuropathic arthropathy; Z79.899 Other long term (current) drug therapy; Z79.4 Long term (current) use of insulin; Z79.891 Long term (current) use of opiate analgesic; Z88.8 Allergy status to other drugs, medicaments and biological substances

== ENCOUNTER → 2019-01-10 | Outpatient (CLI) | payer OTHER ==
[~2019-01-10] VITALS: Ht 172.7 cm; Wt 113.4 kg
[2019-01-10 14:15] VITALS: BP 162/93
--- NOTE | 2019-01-10 14:19 | NUR ---
Pain Clinic Assessment: 1. History of Osteoarthritis: Left Lower Extremity Left Upper Extremity Right Lower Extremity Right Upper Extremity B/L, KNEES NECK SPINE ANKLES HANDS FEET ELBOWS History of Rheumatoid Arthritis: Not Applicable 2. Height: 5 ft. 8 in. 172.7 cm. Weight: 250.0 lb. oz. 113.400 kg. Patient's BMI: 38.0 3. Vital Signs: BP: 162/93 Pulse: 75 Resp: 18 Temp: 02 Sat: 94 ECG Mon: 4. Pain Intensity: 1 WITH MEDS 5. Fall Risk: Dizziness: N Needs help standing or walking: N Fallen in the last 3 months: N Fall risk comments: PT HAS DIZZINESS WHEN UP USING PROSTETIC LEG, PT IN W/C AMPUTATION AT KNEE 6. Patient on Blood Thinner: None 7. History of Hypertension: Y 8. Opioid Therapy greater than 6 weeks: Y Opiate Contract Signed: 07/04/17 9. Risk Assessment Tool Provided: LOW-3 10. Functional Assessment Tool: 35/70 11. Recreational Drug Use: Never Drug Type: Tobacco Use: Never Smoker Tobacco Type: Amount or Packs/day: How Many Years: Alcohol Use: No Frequency: Quant:
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
== END ==
LOC: PAIN 06:53
DX: E11.42 Type 2 diabetes mellitus with diabetic polyneuropathy (principal); Z79.899 Other long term (current) drug therapy; Z88.8 Allergy status to other drugs, medicaments and biological substances; Z79.4 Long term (current) use of insulin; Z79.891 Long term (current) use of opiate analgesic

== ENCOUNTER 2019-03-14 11:55 | Emergency (ER) | payer OTHER ==
[~2019-03-14] VITALS: Ht 172.7 cm; Wt 113.4 kg
[~2019-03-14 11:55] MED LIST changes: -VIBRAMYCIN 100100 MG PO
[2019-03-14 13:43] LABS: ABSOLUTE NEUTROPHILS 9.5 thou/uL (1.4-8.2); BASOPHILS 0.5 % (0.0-2.0); EOSINOPHILS 3.1 % (0.0-3.0); HEMATOCRIT 30.8 % (42.0-52.0); LYMPHOCYTES 11.7 % (24.0-44.0); MCH 27.1 pg (26.0-34.0); MCHC 32.5 g/dL (28.0-37.0); MCV 83.3 fL (80.0-100.0); MONOCYTES 11.1 % (1.0-8.0); PLATELET COUNT 421 thou/uL (150-400); POLYS 73.6 % (36.0-66.0); RDW 13.7 % (10.5-14.5); WBC 12.9 thou/uL (4.0-11.0)
[2019-03-14 13:56] LABS: CALCIUM 9.2 mg/dL (8.5-10.1); CREATININE 1.2 mg/dL (0.7-1.3); POTASSIUM 3.9 mmol/L (3.5-5.1)
[2019-03-14 14:03] LABS: ALBUMIN 3.1 g/dL (3.4-5.0); DIRECT BILIRUBIN 0.3 mg/dL (<0.1-0.3); TOTAL BILIRUBIN 1.2 mg/dL (<0.1-1.0); TOTAL PROTEIN 7.6 g/dL (6.4-8.2)
[2019-03-14] MEDS ORDERED: VIBRAMYCIN 100100 MG PO (14:33)
[2019-03-14 16:03] VITALS: BP 122/67
== END 2019-03-14 16:04 | disposition home or self-care (01) ==
LOC: ER 11:55
PROVIDERS: Emergency Medicine
DX: T25.122A Burn of first degree of left foot, initial encounter (principal); Z89.511 Acquired absence of right leg below knee; Z90.49 Acquired absence of other specified parts of digestive tract; Z88.1 Allergy status to other antibiotic agents; Z88.2 Allergy status to sulfonamides; Z88.6 Allergy status to analgesic agent; X16.XXXA Contact with hot heating appliances, radiators and pipes, initial encounter; Y93.89 Activity, other specified; Y92.89 Other specified places as the place of occurrence of the external cause; Y99.8 Other external cause status

== ENCOUNTER → 2019-03-14 | Outpatient (CLI) | payer OTHER ==
[~2019-03-14] VITALS: Ht 172.7 cm; Wt 97.5 kg
[~2019-03-14] MED LIST changes: +NEURONTIN300 MG PO; +VIBRAMYCIN 100100 MG PO
[2019-03-14 11:06] VITALS: BP 141/74
--- NOTE | 2019-03-14 11:16 | NUR ---
Pain Clinic Assessment: 1. History of Osteoarthritis: Left Lower Extremity Left Upper Extremity Right Lower Extremity Right Upper Extremity B/L, KNEES NECK SPINE ANKLES HANDS FEET ELBOWS History of Rheumatoid Arthritis: Not Applicable 2. Height: 5 ft. 8 in. 172.7 cm. Weight: 215.0 lb. oz. 97.524 kg. Patient's BMI: 32.7 3. Vital Signs: BP: 141/74 Pulse: 73 Resp: 17 Temp: 02 Sat: 94 ECG Mon: 4. Pain Intensity: 3 5. Fall Risk: Dizziness: N Needs help standing or walking: Y Fallen in the last 3 months: N Fall risk comments: AMPUTEE- WHEELCHAIR 6. Patient on Blood Thinner: None 7. History of Hypertension: Y 8. Opioid Therapy greater than 6 weeks: Y Opiate Contract Signed: 07/04/17 9. Risk Assessment Tool Provided: LOW-3 10. Functional Assessment Tool: 35 11. Recreational Drug Use: Never Drug Type: Tobacco Use: Never Smoker Tobacco Type: Amount or Packs/day: How Many Years: Alcohol Use: No Frequency: Quant:
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
== END ==
LOC: PAIN 06:53
DX: T25.322A Burn of third degree of left foot, initial encounter (principal); G25.0 Essential tremor; E11.42 Type 2 diabetes mellitus with diabetic polyneuropathy; Z79.891 Long term (current) use of opiate analgesic; X08.8XXA Exposure to other specified smoke, fire and flames, initial encounter; Y93.89 Activity, other specified; Y92.89 Other specified places as the place of occurrence of the external cause; Y99.8 Other external cause status

== ENCOUNTER → 2019-06-18 | Outpatient (CLI) | payer OTHER ==
[~2019-06-18] MED LIST changes: +LEVO-T50 MCG PO; +OXYCODONE-ACET1 EACH PO; +VIBRAMYCIN 100100 MG PO
[2019-06-18 09:47] VITALS: BP 169/94
--- NOTE | 2019-06-18 10:06 | NUR ---
Pain Clinic Assessment: 1. History of Osteoarthritis: Left Lower Extremity Left Upper Extremity Right Lower Extremity Right Upper Extremity B/L, KNEES NECK SPINE ANKLES HANDS FEET ELBOWS History of Rheumatoid Arthritis: Not Applicable 2. Height: ft. in. cm. Weight: 237.0 lb. oz. 107.503 kg. Patient's BMI: 3. Vital Signs: BP: 169/94 Pulse: 97 Resp: 16 Temp: 02 Sat: 98 ECG Mon: 4. Pain Intensity: 1-2 5. Fall Risk: Dizziness: N Needs help standing or walking: Y Fallen in the last 3 months: N Fall risk comments: AMPUTEE- WHEELCHAIR 6. Patient on Blood Thinner: None 7. History of Hypertension: Y 8. Opioid Therapy greater than 6 weeks: Y Opiate Contract Signed: 07/04/17 9. Risk Assessment Tool Provided: LOW-3 10. Functional Assessment Tool: 11. Recreational Drug Use: Never Drug Type: Tobacco Use: Never Smoker Tobacco Type: Amount or Packs/day: How Many Years: Alcohol Use: No Frequency: Quant:
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
== END ==
LOC: PAIN 06:42
DX: M79.672 Pain in left foot (principal); M79.604 Pain in right leg; G25.0 Essential tremor; E11.42 Type 2 diabetes mellitus with diabetic polyneuropathy; Z88.2 Allergy status to sulfonamides; Z88.8 Allergy status to other drugs, medicaments and biological substances; Z79.811 Long term (current) use of aromatase inhibitors; Z79.891 Long term (current) use of opiate analgesic; Z79.899 Other long term (current) drug therapy

== ENCOUNTER → 2019-10-10 | Outpatient (CLI) | payer OTHER ==
[~2019-10-10] VITALS: Ht 172.7 cm; Wt 78.0 kg
[~2019-10-10] MED LIST changes: +OXYCODONE-ACET1 EAC2 PO
[2019-10-10 12:36] VITALS: BP 169/96
--- NOTE | 2019-10-10 12:42 | NUR ---
Pain Clinic Assessment: 1. History of Osteoarthritis: Left Lower Extremity Left Upper Extremity Right Lower Extremity Right Upper Extremity B/L, KNEES NECK SPINE ANKLES HANDS FEET ELBOWS History of Rheumatoid Arthritis: Not Applicable 2. Height: 5 ft. 8 in. 172.7 cm. Weight: 172.0 lb. oz. 78.019 kg. Patient's BMI: 26.2 3. Vital Signs: BP: 169/96 Pulse: 113 Resp: 20 Temp: 02 Sat: 95 ECG Mon: 4. Pain Intensity: 9 5. Fall Risk: Dizziness: N Needs help standing or walking: Y Fallen in the last 3 months: N Fall risk comments: AMPUTEE- WHEELCHAIR 6. Patient on Blood Thinner: None 7. History of Hypertension: Y 8. Opioid Therapy greater than 6 weeks: Y Opiate Contract Signed: 07/04/17 9. Risk Assessment Tool Provided: LOW-3 10. Functional Assessment Tool: 11. Recreational Drug Use: Never Drug Type: Tobacco Use: Never Smoker Tobacco Type: Amount or Packs/day: How Many Years: Alcohol Use: No Frequency: Quant:
--- NOTE | 2019-10-22 16:01 | HPC ---
[facility] [place] [address] PAIN MANAGEMENT CONSULTATION Name: PRATTBLAIRLIYA LYDIA Room #: REG CUCO [facility]#: [id number] Admission: 10/10/19 Attend Phys: Cynthia Gonzalez MD Discharge: Date of : 57 Report #: [id number] THIS REPORT FOR: cc: Daquan Dooley,Cynthia Granados MD ~ CC: Daquan Gonzalez DATE OF SERVICE: 10/10/2019 CHIEF COMPLAINT: "I am in a lot of pain and the pain medicine is not working as well." HISTORY: The patient is a 64-year-old gentleman who has been followed in the pain clinic. As you may recall, he has diabetes. As a result of an infection in his foot, he underwent a pcmdt-yrk-dyur amputation. He is still in the process of trying to get his prosthesis resolved. He has noticed an increase in his pain and discomfort. He feels that he needs an increase in his medication because the pain has gotten significantly worse. He describes it as horrible pain and discomfort. He has a burning discomfort. Notes that there continues to be some pain in the phantom limb of the right leg. He has returned today for renewal of his medications. ALLERGIES: BACTRIM, FENTANYL. CURRENT MEDICATIONS: Oxycodone 5 mg q. 6 hours p.r.n., levothyroxine 50 mg, amlodipine 10 mg, Xanax 1 mg b.i.d., metoprolol XL 100 mg, albuterol 2 puffs p.r.n. q. 6 hours, insulin 35 units subQ q. 12 hours, Bisoprolol-hydrochlorothiazide 10/6.25, primidone 50 mg at bedtime, Humalog insulin sliding scale. PAIN CLINIC ASSESSMENT/PQRS: 1. The patient has some osteoarthritic changes in his left upper extremity. The patient also has some discomfort in his left lower extremity. Complains of pain and discomfort involving his neck, ankles, hands, feet, and elbow. He is not being treated for rheumatoid arthritis. 2. Height 5 feet 8 inches, weight 172 pounds, BMI is 26.2. 3. Vital signs: Blood pressure 169/96, pulse 113, respiratory rate 20, room air saturation 95%. 4. Pain intensity /10. 5. Fall history: The patient is an amputee is in a wheelchair. 6. Blood thinner. The patient is not on a blood thinning medication. 7. Hypertension. The patient is being treated for hypertension. 8. Opioids greater than 6 weeks. The patient received medication from the pain clinic. [address] [address] PAIN MANAGEMENT CONSULTATION Name: LIYA PRATT Room #: REG CL[facility]ignon [facility]#: [id number] Admission: 10/10/19 Attend Phys: Cynthia Gonzalez MD Discharge: Date of : 57 Report #: [id number] 9. Risk assessment tool, low for opioid use. 10. Functional assessment tool 35/70. PHYSICAL EXAMINATION: GENERAL: The patient is a well-developed, well-nourished white male. Appears his stated age. He is in the lower spirits today. His complaint is pain has been quite excruciating. Things have not improved since his pain medicines were decreased. HEENT: Normocephalic, atraumatic. Extraocular eye muscles intact. Sclerae nonicteric. The patient looks disheveled, which is his General appearance. ABDOMEN: Nontender. Bowel sounds present. MUSCULOSKELETAL: The patient's upper extremity muscle strength 5/5 for the major muscle groups in the upper extremity. The patient without significant scoliosis, kyphosis or lordosis. Has pain in the right lower extremity, which is healing well. Has a sensation of phantom limb pain in the right lower extremity. The patient has a dangling from the wheelchair. IMPRESSION: 1. History of Charcot foot with resultant cexyw-ykc-zjzy amputation and after development of gangrene in the right foot. 2. Healing of the wound. The patient is trying to get a prosthesis which will be functional without causing pain. 3. History of diabetes and peripheral neuropathy. 4. Benign familiar tremor. 5. Complex medical management using opioids. RECOMMENDATION: The patient feels that his medications are not helpful. We will increase his medications. He has been using Percocet 5 mg 1 p.o. q.i.d. We will increase it to Percocet 10 mg 1 p.o. q.i.d. Hopefully, he will note significant improvement in his pain and things continue to improve. The patient will call us if he has any problems. We explained to him the use of a mirror. He will place the mirror such that he is able to see his left leg and have it in the area where his right leg should have been. He will then start to manipulate and move his left leg. This has been helpful in some patients when they have pain as well as suffer from phantom limb problems. He will call us if he has any concerns. We would like to thank you for letting us participate in his care. We hope he continues to improve. <ELECTRONICALLY SIGNED> By: Cynthia Gonzalez MD 10/22/19 [id number] MD fly Moise
== END ==
LOC: PAIN 06:49
PROVIDERS: ATTEND Anesthesiology Pain Medicine
DX: G89.29 Other chronic pain (principal); F11.20 Opioid dependence, uncomplicated; R25.1 Tremor, unspecified; E11.40 Type 2 diabetes mellitus with diabetic neuropathy, unspecified; I10 Essential (primary) hypertension; Z88.8 Allergy status to other drugs, medicaments and biological substances; Z87.39 Personal history of other diseases of the musculoskeletal system and connective tissue; Z79.899 Other long term (current) drug therapy